=== PATIENT | female | born 1995 | race Caucasian/White ===

== ENCOUNTER → 2016-07-17 | Outpatient (CLI) | payer OTHER ==
[2016-07-17 11:24] LABS: Follicle Stimulating Hormone 3.7 mIU/mL; HCG,Quantitative Serum <2.4 mIU/mL; Prolactin 12.3 ng/mL (3.0-18.6)
[2016-07-17 11:39] LABS: Estradiol 52 pg/mL
== END ==
LOC: LABWHC1 10:23
PROVIDERS: ATTEND Obstetrics & Gynecology
DX: N91.2 Amenorrhea, unspecified (principal)
CPT/HCPCS: 36415; 82670; 83001; 84146; 84443; 84702

== ENCOUNTER → 2016-08-23 | Outpatient (CLI) | payer OTHER ==
--- NOTE | 2016-08-23 09:43 | XR ---
EXAMINATION TYPE: XR ankle complete RT DATE OF EXAM: 08/23/2016 CLINICAL HISTORY: Right lateral ankle pain for a few days. History of prior fracture. TECHNIQUE: Frontal, lateral and oblique images of the right ankle are obtained. COMPARISON: None. FINDINGS: There is no acute fracture/dislocation evident in the right ankle. The ankle mortise appe ars within normal limits. The overlying soft tissue appears unremarkable. IMPRESSION: There is no acute fracture or dislocation in the right ankle. Unremarkable study.
== END | disposition home or self-care (01) ==
LOC: RADXRMAIN 09:12
PROVIDERS: ATTEND Physician Assistant
DX: M25.571 Pain in right ankle and joints of right foot (principal)

== ENCOUNTER → 2016-08-30 | Outpatient (CLI) | payer OTHER ==
--- NOTE | 2016-08-30 15:16 | US ---
EXAMINATION TYPE: US pelvic complete DATE OF EXAM: 08/30/2016 COMPARISON: US 2013 CLINICAL HISTORY: E28.2 polycystic ovaries. LMP April 2016, TECHNIQUE: Transabdominal (TA) Date of LMP: April 2016 EXAM MEASUREMENTS: Uterus: 8.7 x 5.6 x 3.7 cm Endometrial Stripe: 1.1 cm Right Ovary: 3.3 x 2.4 x 2.1 cm Left Ovary: 4.4 x 3.5 x 2.3 cm 1. Uterus: Anteverted 2. Endometrium: unable to correlate thickness with April LMP 3. Right Ovary: multiple follicles with largest = 1.8 x 1.3 x 1.8cm 4. Left Ovary: multiple small follicles 5. Bilateral Adnexa: wnl 6. Posterior cul-de-sac: wnl IMPRESSION: 1. Multiple ovarian follicular cysts.
== END | disposition home or self-care (01) ==
LOC: RADUSWWP 14:04
PROVIDERS: ATTEND Family Medicine
DX: N83.02 Follicular cyst of left ovary (principal); N83.01 Follicular cyst of right ovary; E28.2 Polycystic ovarian syndrome
CPT/HCPCS: 76856

== ENCOUNTER 2016-09-06 17:51 | Emergency (ER) | payer OTHER ==
[2016-09-06 18:12] VITALS: RESP 16
[2016-09-06] MEDS ORDERED: SODIUM CHLORIDE 0.9% 1,000 ML IV ONE (18:42)
[2016-09-06] MEDS ORDERED: KETOROLAC 30 MG/ML 1 ML VIAL IVP STA (18:42)
--- NOTE | 2016-09-06 18:44 | ED ---
Abdominal Pain HPI - General Chief Complaint: Abdominal Pain Stated Complaint: POSS GALLBLADDER/APPENDICITIS Time Seen by Provider: 09/06/16 18:25 Source: patient, RN notes reviewed Mode of arrival: ambulatory Limitations: no limitations - History of Present Illness Initial Comments: Patient is a 20-year-old female since emergency room for evaluation of abdominal pain. Patient states starting 10:30 PM last night she began having right upper quadrant pain. Patient states that she made "shaken baked drumstick " with rice for dinner. Patient states that she was up to 5 in the morning with nausea and pain. Patient states she went to primary care provider today and she was tender in her right upper quadrant and in her right lower quadrant. Patient states she was told it could be her gallbladder or appendix and was advised to come to the emergency room for further evaluation. Patient denies any history of abdominal surgeries. Patient denies current nausea. Patient denies fevers or chills. Patient states she's having intermittent crampy/ spasming pain in her right upper quadrant. Patient states she only has pain in her right lower quadrant when someone presses over the area. Patient denies any pain or burning during urination, trouble urinating or blood in urine. Patient denies flank pain. Patient denies headache or dizziness. - Related Data Home Medications Medication Instructions Recorded Confirmed ALPRAZolam [Xanax] 0.5 mg PO DAILY PRN 09/06/16 09/06/16 Dextroamphetamine/Amphetamine 30 mg PO DAILY 09/06/16 09/06/16 [Adderall] Multivit-Min/Iron/Folic/Lutein 1 tab PO DAILY 09/06/16 09/06/16 [Centrum Silver Women Tablet] metFORMIN HCL [Glucophage] 500 mg PO BID 09/06/16 09/06/16 Previous Rx's Medication Instructions Recorded Famotidine [Pepcid] 20 mg PO DAILY PRN #12 tablet 09/06/16 Ondansetron Odt [Zofran Odt] 4 mg PO Q8HR PRN #12 tab 09/06/16 Allergies Allergy/AdvReac Type Severity Reaction Status Date / Time albuterol Allergy Rash/Hives Verified 09/06/16 18:30 azithromycin AdvReac Unknown Verified 09/06/16 18:30 Childhood divalproex sodium AdvReac Unknown Verified 09/06/16 18:30 [From Depakote] Latex, Natural Rubber AdvReac Itching Verified 09/06/16 18:30 sumatriptan [From Imitrex] AdvReac Diarrhea Verified 09/06/16 18:30 sumatriptan succinate AdvReac Diarrhea Verified 09/06/16 18:30 [From Imitrex] topiramate [From Topamax] AdvReac Unknown Verified 09/06/16 18:30 Review of Systems ROS Statement: Those systems with pertinent positive or pertinent negative responses have been documented in the HPI. ROS Other: All systems not noted in ROS Statement are negative. Past Medical History Past Medical History: Asthma Additional Past Medical History / Comment(s): Patient has a history of migraine headaches, PCOS History of Any Multi-Drug Resistant Organisms: None Reported Past Surgical History: Adenoidectomy, Ear Surgery, Tonsillectomy Additional Past Surgical History / Comment(s): Patient had tympanostomy tubes placed as a child. Past Anesthesia/Blood Transfusion Reactions: No Reported Reaction Past Psychological History: ADD/ADHD, Depression Smoking Status: Never smoker Past Alcohol Use History: None Reported Past Drug Use History: None Reported General Exam - General Exam Comments Initial Comments: Sitting in exam room, no acute distress. Limitations: no limitations General appearance: alert, in no apparent distress Head exam: Present: atraumatic, normocephalic, normal inspection Eye exam: Present: normal appearance ENT exam: Present: normal exam Neck exam: Present: normal inspection, full ROM Respiratory exam: Present: normal lung sounds bilaterally. Absent: respiratory distress Cardiovascular Exam: Present: regular rate, normal rhythm, normal heart sounds GI/Abdominal exam: Present: soft, tenderness (Right upper quadrant, mild right lower quadrant), normal bowel sounds. Absent: distended, guarding, rebound, rigid Extremities exam: Present: normal inspection Back exam: Present: normal inspection Neurological exam: Present: alert, oriented X3, CN II-XII intact, normal gait Psychiatric exam: Present: normal affect, normal mood Skin exam: Present: warm, dry, intact, normal color. Absent: rash Course Vital Signs 09/06/16 09/06/16 18:09 21:54 Temperature 97.8 F 98 F Pulse Rate 82 64 Respiratory 16 16 Rate Blood Pressure 128/83 118/68 O2 Sat by Pulse 100 98 Oximetry Medical Decision Making - Medical Decision Making Patient is a 21-year-old female presents to the emergency room for evaluation of abdominal pain. Ultrasound negative for cholelithiasis or cholecystitis. Appendix not visualized on ultrasound. CT abdomen/pelvis significant for possible gastritis and hepatic stetosis. Patient will be sent home with [place] and [facility] and advised how primary care provider. Patient states she understands everything that was discussed with her. Return parameters discussed. Case discussed Dr. Kovacs. - Lab Data Result diagrams: 09/06/16 18:55 09/06/16 18:55 Lab Results 09/06/16 09/06/16 09/06/16 Range/Units 18:55 18:55 18:55 WBC 7.3 (3.8-10.6) k/uL RBC 4.88 (3.80-5.40) m/uL Hgb 14.5 (11.4-16.0) gm/dL Hct 42.0 (34.0-46.0) % MCV 86.2 (80.0-100.0) fL MCH 29.7 (25.0-35.0) pg MCHC 34.5 (31.0-37.0) g/dL RDW 13.4 (11.5-15.5) % Plt Count 253 (150-450) k/uL Neutrophils % 63 % Lymphocytes % 28 % Monocytes % 5 % Eosinophils % 2 % Basophils % 1 % Neutrophils # 4.6 (1.3-7.7) k/uL Lymphocytes # 2.1 (1.0-4.8) k/uL Monocytes # 0.4 (0-1.0) k/uL Eosinophils # 0.2 (0-0.7) k/uL Basophils # 0.0 (0-0.2) k/uL Sodium 144 (137-145) mmol/L Potassium 4.2 (3.5-5.1) mmol/L Chloride 106 (98-107) mmol/L Carbon Dioxide 26 (22-30) mmol/L Anion Gap 12 mmol/L BUN 14 (7-17) mg/dL Creatinine 0.80 (0.52-1.04) mg/dL Est GFR (MDRD) Af Amer >60 (>60 ml/min/1.73 sqM) Est GFR (MDRD) Non-Af >60 (>60 ml/min/1.73 sqM) Glucose 73 L (74-99) mg/dL Calcium 9.9 (8.4-10.2) mg/dL Total Bilirubin 0.2 (0.2-1.3) mg/dL AST 27 (14-36) U/L ALT 44 (9-52) U/L Alkaline Phosphatase 65 (38-126) U/L Total Protein 7.4 (6.3-8.2) g/dL Albumin 4.7 (3.5-5.0) g/dL Amylase 36 (30-110) U/L Lipase 95 (23-300) U/L Urine Color Urine Appearance (Clear) Urine pH (5.0-8.0) Ur Specific [place] (1.001-1.035) Urine Protein (Negative) Urine Glucose (UA) (Negative) Urine Ketones (Negative) Urine Blood (Negative) Urine Nitrite (Negative) Urine Bilirubin (Negative) Urine Urobilinogen (<2.0) mg/dL Ur Leukocyte Esterase (Negative) Urine RBC (0-5) /hpf Urine WBC (0-5) /hpf Ur Squamous Epith Cells (0-4) /hpf Urine Mucus (None) /hpf Urine HCG, Qual Not Detected (Not Detectd) 09/06/16 Range/Units 18:55 WBC (3.8-10.6) k/uL RBC (3.80-5.40) m/uL Hgb (11.4-16.0) gm/dL Hct (34.0-46.0) % MCV (80.0-100.0) fL MCH (25.0-35.0) pg MCHC (31.0-37.0) g/dL RDW (11.5-15.5) % Plt Count (150-450) k/uL Neutrophils % % Lymphocytes % % Monocytes % % Eosinophils % % Basophils % % Neutrophils # (1.3-7.7) k/uL Lymphocytes # (1.0-4.8) k/uL Monocytes # (0-1.0) k/uL Eosinophils # (0-0.7) k/uL Basophils # (0-0.2) k/uL Sodium (137-145) mmol/L Potassium (3.5-5.1) mmol/L Chloride (98-107) mmol/L Carbon Dioxide (22-30) mmol/L Anion Gap mmol/L BUN (7-17) mg/dL Creatinine (0.52-1.04) mg/dL Est GFR (MDRD) Af Amer (>60 ml/min/1.73 sqM) Est GFR (MDRD) Non-Af (>60 ml/min/1.73 sqM) Glucose (74-99) mg/dL Calcium (8.4-10.2) mg/dL Total Bilirubin (0.2-1.3) mg/dL AST (14-36) U/L ALT (9-52) U/L Alkaline Phosphatase (38-126) U/L Total Protein (6.3-8.2) g/dL Albumin (3.5-5.0) g/dL Amylase (30-110) U/L Lipase (23-300) U/L Urine Color Yellow Urine Appearance Cloudy H (Clear) Urine pH 5.0 (5.0-8.0) Ur Specific [place] 1.019 (1.001-1.035) Urine Protein Negative (Negative) Urine Glucose (UA) Negative (Negative) Urine Ketones Negative (Negative) Urine Blood Negative (Negative) Urine Nitrite Negative (Negative) Urine Bilirubin Negative (Negative) Urine Urobilinogen <2.0 (<2.0) mg/dL Ur Leukocyte Esterase Small H (Negative) Urine RBC 13 H (0-5) /hpf Urine WBC 2 (0-5) /hpf Ur Squamous Epith Cells 1 (0-4) /hpf Urine Mucus Rare H (None) /hpf Urine HCG, Qual (Not Detectd) - Radiology Data Radiology results: report reviewed, image reviewed Disposition Clinical Impression: Abdominal pain Disposition: HOME SELF-CARE Condition: Good Instructions: Gastritis (ED), Abdominal Pain (ED) Additional Instructions: Take medications as needed. Please up with primary care provider for reevaluation in 24-48 hours. If any new symptom arises or symptoms worsen, return to ER as soon as possible. Prescriptions: Ondansetron Odt [Zofran Odt] 4 mg PO Q8HR PRN #12 tab PRN Reason: Nausea Famotidine [Pepcid] 20 mg PO DAILY PRN #12 tablet PRN Reason: Pain Referrals: Tex Mendoza MD [Primary Care Provider] - 1-2 days Time of Disposition: 21:45
[2016-09-06 19:09] LABS: Basophils % (A) 1 %; CH 30.6; CHCM 35.7; Eosinophils # (A) 0.2 k/uL (0-0.7); Eosinophils % (A) 2 %; HDW 2.84; HGB 14.5 gm/dL (11.4-16.0); Luc % (Auto) 1; Lymphocytes # (A) 2.1 k/uL (1.0-4.8); Lymphocytes % (A) 28 %; MCH 29.7 pg (25.0-35.0); MCHC 34.5 g/dL (31.0-37.0); MCV 86.2 fL (80.0-100.0); Mean Platelet Volume 7.8; Monocytes # (A) 0.4 k/uL (0-1.0); Monocytes % (A) 5 %; Neutrophils # (A) 4.6 k/uL (1.3-7.7); Neutrophils % (A) 63 %; RBC 4.88 m/uL (3.80-5.40); RDW 13.4 % (11.5-15.5); WBC 7.3 k/uL (3.8-10.6); WBC (Perox) 7.17
[2016-09-06 19:17] LABS: Appearance,Urine Cloudy (Clear); Bilirubin,Urine Negative (Negative); Glucose,Urine (UA) Negative (Negative); Ketones,Urine Negative (Negative); Leukocyte Esterase,Urine Small (Negative); Mucus,Urine Rare /hpf; Nitrite,Urine Negative (Negative); Particle Count 2672; Protein,Urine Negative (Negative); RBC,Urine 13 /hpf (0-5); Specific Gravity,Urine 1.019 (1.001-1.035); Squamous Epithelial Cell,Urine 1 /hpf (0-4); UA Billing (MACRO vs. MICRO) MICRO; Urobilinogen,Urine <2.0 mg/dL (<2.0); WBC,Urine 2 /hpf (0-5)
[2016-09-06 19:21] LABS: ALT 44 U/L (9-52); AST 27 U/L (14-36); Alkaline Phosphatase 65 U/L (38-126); Amylase 36 U/L (30-110); Anion Gap 12 mmol/L; Blood Urea Nitrogen 14 mg/dL (7-17); Calcium 9.9 mg/dL (8.4-10.2); Carbon Dioxide 26 mmol/L (22-30); Chloride 106 mmol/L (98-107); Glucose 73 mg/dL (74-99); Non-African American GFR(MDRD) >60 (>60 ml/min/1.73 sqM); Potassium 4.2 mmol/L (3.5-5.1); Sodium 144 mmol/L (137-145); Total Bilirubin 0.2 mg/dL (0.2-1.3); Total Protein 7.4 g/dL (6.3-8.2)
--- NOTE | 2016-09-06 20:07 | US ---
EXAMINATION TYPE: US abdomen APPY DATE OF EXAM: 09/06/2016 COMPARISON: NONE CLINICAL HISTORY: Pain. APPENDIX AP Diameter (normal < 6mm): 5 mm Measured outer wall to outer wall. Is the appendix seen in its entirety from the proximal cecum to distal end: No, the appendix is not visualized in its entirety. Tube like structure visualized in the RLQ measuring 0.5 cm, possible appe ndix Is the appendix compressible: Yes Does the appendix wall appear hypervascular: No Is an appendicolith present: No Is there inflammatory changes or free fluid present: No IMPRESSION: The appendix is not definitively visualized.
--- NOTE | 2016-09-06 20:32 | US ---
EXAMINATION TYPE: US abdomen limited DATE OF EXAM: 09/06/2016 COMPARISON: NONE CLINICAL HISTORY: RUQ Pain. EXAM MEASUREMENTS: Liver Length: 21.6 cm Gallbladder Wall: 0.2 cm CBD: 0.4 cm Right Kidney: 11.2 x 3.5 x 4.8 cm Pancreas: Obscured by bowel gas, visualized portions wnl Liver: Enlarged. Coarse, hyperechoic echotexture. Gallbladder: wnl Evidence for sonographic Solorzano's sign: Yes CBD: wnl Right Kidney: No hydronephrosis or masses seen, cortical medullary differentiation is maintained. There is no ascites. IMPRESSION: Probable hepatic steatosis.
[2016-09-06] MEDS ORDERED: RX INFO: IV CONTRAST WAS GIVEN 1 EACH MISC MISCELLANE PRN (20:42)
--- NOTE | 2016-09-06 21:25 | CT ---
EXAMINATION TYPE: CT abdomen pelvis w con DATE OF EXAM: 09/06/2016 COMPARISON: Ultrasound abdomen same date an ultrasound pelvis of 08/30/2016 HISTORY: Right side abdominal pain. CT DLP: 1638.9 mGycm Automated exposure control for dose reduction was used. TECHNIQUE: Helical acquisition of images from the lung bases through the pelvis have been completed. CONTRAST: Performed without Oral Contrast and with IV Contrast, patient injected with 100 mL of Omnipaque 300. FINDINGS: Stomach shows a thickened wall which could be due to lack of distention. LUNG BASES: No significant abnormality is appreciated. AORTA: No significant abnormality is appreciated. LIVER/GB: Liver shows low attenuation compatible with fatty infiltration, the liver is enlarged, gall bladder is normal. PANCREAS: No significant abnormality is seen. SPLEEN: No significant abnormality is seen. ADRENALS: No significant abnormality is seen. KIDNEYS: No significant abnormality is seen. REPRODUCTIVE ORGANS: No significant abnormality is seen BOWEL: No significant abnormality is seen. Appendix is normal FREE AIR: No Free Air visible. ASCITES: None visible. PELVIC ADENOPATHY: None visualized. RETROPERITONEAL ADENOPATHY: No Retroperitoneal Adenopathy visible. URINARY BLADDER: No significant abnormality is seen. OSSEOUS STRUCTURES: No significant abnormality is seen. IMPRESSION: HEPATOMEGALY, HEPATIC STEATOSIS. CORRELATE FOR GASTRITIS.
[2016-09-06 21:56] VITALS: BP 118/68; PULSE 64; TEMP 98
== END 2016-09-06 21:54 | disposition home or self-care (01) ==
LOC: EC 17:51
DX: R10.11 Right upper quadrant pain (principal); R10.31 Right lower quadrant pain; R11.0 Nausea; K76.0 Fatty (change of) liver, not elsewhere classified; F90.9 Attention-deficit hyperactivity disorder, unspecified type; Z79.84 Long term (current) use of oral hypoglycemic drugs; Z79.899 Other long term (current) drug therapy; Z88.1 Allergy status to other antibiotic agents; Z88.8 Allergy status to other drugs, medicaments and biological substances; Z91.040 Latex allergy status
CPT/HCPCS: 36415; 80053; 82150; 83690; 85025; 81001; 81025; 76705; 74177; 99284; 96374; 96361 ×3; J1885; Q9967

== ENCOUNTER → 2016-09-28 | Outpatient (CLI) | payer OTHER ==
--- NOTE | 2016-09-28 09:39 | NM ---
EXAMINATION TYPE: NM hepatobiliary w EF DATE OF EXAM: 09/28/2016 COMPARISON: Abdominal ultrasound and CT dated 09/06/2016 HISTORY: Right upper quadrant pain TECHNIQUE: After the intravenous administration of 5.1 mCi Tc 99m Mebrofenin hepatobiliary scintigrap hy is performed. Immediate images post injection. FINDINGS: There is satisfactory initial accumulation of tracer by the liver. The gallbladder is visualized wit hin 6 minutes. The small bowel activity is noted within 10 minutes. At one hour 8 ounces of oral en sure plus is given to mimic CCK and gallbladder ejection fraction is calculated at 89 %, in the chanda l range. Therefore there is no scintigraphic evidence of cystic or common bile duct obstruction to s uggest acute cholecystitis or gallbladder dyskinesia. IMPRESSION: 1. No evidence of acute or chronic cholecystitis. 2. No evidence of biliary dyskinesia with ejection fraction of 89%.
== END ==
LOC: RADNMMAIN 07:00
PROVIDERS: ATTEND Family Medicine
DX: R10.11 Right upper quadrant pain (principal)
CPT/HCPCS: 78226; A9537

== ENCOUNTER → 2016-11-13 | Outpatient (CLI) | payer OTHER ==
--- NOTE | 2016-11-13 18:02 | CT ---
EXAMINATION TYPE: CT brain wo con DATE OF EXAM: 11/13/2016 COMPARISON: CT brain January 09, 2013 HISTORY: migraines headaches per order, change in vision, loss of balance, dizziness CT DLP: 1067 mGycm. Automated Exposure Control for Dose Reduction was Utilized. TECHNIQUE: CT scan of the head is performed without contrast. FINDINGS: There is no acute intracranial hemorrhage, mass effect, or midline shift identified. The ventricles and sulci are within normal limits in size. Guerrero-white matter differentiation is fairly well-maintained. The globes are intact and the visualized sinuses are clear. IMPRESSION: No acute intracranial hemorrhage, mass effect, or midline shift is seen. Unremarkable st udy. No significant change from prior.
== END | disposition home or self-care (01) ==
LOC: RADCTMAIN 17:35
PROVIDERS: ATTEND Family Medicine
DX: R51 Headache (principal)
CPT/HCPCS: 70450

== ENCOUNTER → 2016-12-28 | Outpatient (CLI) | payer OTHER ==
--- NOTE | 2016-12-29 09:05 | ECHOF ---
Referral Reason:R03.0 Elevated DT without HTN MEASUREMENTS -------- HEIGHT: 170.2 cm WEIGHT: 110.7 kg BP: 133/74 IVSd: 0.9 cm (0.6 - 1.1) LVIDd: 3.1 cm (3.9 - 5.3) LVPWd: 1.0 cm (0.6 - 1.1) IVSs: 1.4 cm LVIDs: 1.6 cm LVPWs: 1.7 cm LAESV Index (A-L): 19.60 ml/m Ao Diam: 2.8 cm (2.0 - 3.7) AV Cusp: 1.9 cm (1.5 - 2.6) LA Diam: 2.7 cm (2.7 - 3.8) MV EXCURSION: 11.540 mm (> 18.000) MV EF SLOPE: 80 mm/s (70 - 150) EPSS: 0.7 cm MV E Theron: 0.85 m/s MV DecT: 151 ms MV A Theron: 0.68 m/s MV E/A Ratio: 1.25 AR PHT: 614 ms RAP: 5.00 mmHg RVSP: 17.18 mmHg FINDINGS -------- Sinus rhythm. This was a technically good study. The left ventricular size is normal. Left ventricular wall thickness is normal. Overall left vent ricular systolic function is normal with, an EF between 55 - 60 %. The right ventricle is normal in size and function. The left atrium is normal in size. The right atrium is normal in size. The aortic valve is trileaflet, and appears structurally normal. No aortic stenosis or regurgitation. Trace amount of aortic regurgitation. The mitral valve leaflets are mildly thickened. There is trace mitral regurgitation. Trace tricuspid regurgitation present. The right ventricular systolic pressure, as measured by Dopp ler, is 17.18mmHg. Pulmonic valve appears structurally normal. The aortic root size is normal. The pericardium is normal. CONCLUSIONS -------- 1. Sinus rhythm. 2. This was a technically good study. 3. The left ventricular size is normal. 4. Left ventricular wall thickness is normal. 5. Overall left ventricular systolic function is normal with, an EF between 55 - 60 %. 6. The right ventricle is normal in size and function. 7. The left atrium is normal in size. 8. The right atrium is normal in size. 9. The aortic valve is trileaflet, and appears structurally normal. No aortic stenosis or regurgitati on. 10. Trace amount of aortic regurgitation. 11. The mitral valve leaflets are mildly thickened. 12. There is trace mitral regurgitation. 13. Trace tricuspid regurgitation present. 14. The right ventricular systolic pressure, as measured by Doppler, is 17.18mmHg. 15. Pulmonic valve appears structurally normal. 16. The aortic root size is normal. 17. The pericardium is normal. LIFE SCIENCES DIRECTOR: Cheyanne Rowe RDCS
== END ==
LOC: RADECHMAIN 13:20
PROVIDERS: ATTEND Family Medicine
DX: I08.3 Combined rheumatic disorders of mitral, aortic and tricuspid valves (principal); Z91.09 Other allergy status, other than to drugs and biological substances
CPT/HCPCS: 93306

== ENCOUNTER → 2017-05-07 | Outpatient (CLI) | payer OTHER ==
--- NOTE | 2017-05-07 11:49 | ECHOS ---
STRESS ECHOCARDIOGRAM INDICATIONS: Chest pain. MEDICATIONS: Xanax. BASELINE HEART RATE: 98 BASELINE BLOOD PRESSURE: 130/64 MAXIMUM HEART RATE: 176 MAXIMUM BLOOD PRESSURE: 167/66 85% MPHR: 167 100% MPHR: 197 METS: 10.7 MAXIMUM STAGE REACHED: 4 TOTAL EXERCISE TIME: 9:15 CLINICAL INFORMATION: Baseline EKG revealed normal sinus rhythm without significant ST-T changes. Patient walked on a standard Андрей protocol for 9 minutes 15 seconds and achieved a maximal heart rate of 176 beats per minute. Resting heart rate was 98 beats per minute. Resting blood pressure was 130/64 and went up to 167/66. Patient did not have any angina or arrhythmia. EKG did not reveal any ST-segment changes to indicate ischemia. By EKG criteria, this is a negative stress test with fair exercise capacity. Baseline echo images revealed normal wall motion and wall thickening of all segments. At peak exercise, there was good augmentation of left ventricular wall motion and wall thickening of all segments suggesting that there is no evidence of stress-induced ischemia on this study. IMPRESSION: 1. Fair exercise capacity with a negative stress test by EKG criteria. 2. Normal stress echocardiogram. MMODL / IJN: [id number] /
== END | disposition home or self-care (01) ==
LOC: RADNMMAIN 09:07
PROVIDERS: ATTEND Family Medicine
DX: R07.9 Chest pain, unspecified (principal)
CPT/HCPCS: 93017; 93350

== ENCOUNTER → 2017-05-21 | Outpatient (CLI) | payer OTHER ==
--- NOTE | 2017-05-21 15:01 | XR ---
EXAMINATION TYPE: XR chest 2V DATE OF EXAM: 05/21/2017 COMPARISON: NONE HISTORY: Chest pain TECHNIQUE: Frontal and lateral views of the chest are obtained. FINDINGS: There is no focal air space opacity. No evidence for pneumothorax. No pleural effusion. The cardiac silhouette size is within normal limits. The osseous structures are grossly intact. IMPRESSION: 1. No acute cardiopulmonary process.
== END | disposition home or self-care (01) ==
LOC: RADXRMAIN 14:20
PROVIDERS: ATTEND Family Medicine
DX: R07.9 Chest pain, unspecified (principal)
CPT/HCPCS: 71046

== ENCOUNTER 2017-06-25 01:50 | Emergency (ER) | payer OTHER ==
[2017-06-25] MEDS ORDERED: SODIUM CHLORIDE 0.9% 1,000 ML IV STA (02:10)
[2017-06-25 02:29] LABS: Basophils % (A) 1 %; Eosinophils # (A) 0.2 k/uL (0-0.7); Eosinophils % (A) 3 %; HCT 41.3 % (34.0-46.0); HGB 14.5 gm/dL (11.4-16.0); Lymphocytes # (A) 2.4 k/uL (1.0-4.8); Lymphocytes % (A) 31 %; MCH 29.7 pg (25.0-35.0); MCV 84.8 fL (80.0-100.0); Mean Platelet Volume 7.2; Monocytes # (A) 0.3 k/uL (0-1.0); Monocytes % (A) 4 %; Neutrophils # (A) 4.7 k/uL (1.3-7.7); Neutrophils % (A) 61 %; Platelet Count 267 k/uL (150-450); RBC 4.87 m/uL (3.80-5.40); RDW 13.1 % (11.5-15.5); WBC 7.7 k/uL (3.8-10.6)
[2017-06-25 02:32] LABS: Appearance,Urine Cloudy (Clear); Bilirubin,Urine Negative (Negative); Blood,Urine Negative (Negative); Color,Urine Yellow; Glucose,Urine (UA) Negative (Negative); Ketones,Urine Trace (Negative); Leukocyte Esterase,Urine Negative (Negative); Mucus,Urine Few /hpf; Nitrite,Urine Negative (Negative); PH, Urine 5.5 (5.0-8.0); Protein,Urine Trace (Negative); RBC,Urine 1 /hpf (0-5); Squamous Epithelial Cell,Urine 6 /hpf (0-4); WBC,Urine 1 /hpf (0-5)
[2017-06-25 02:37] LABS: INR 1.1 (<1.2)
[2017-06-25 02:38] LABS: ALT 42 U/L (9-52); AST 26 U/L (14-36); Albumin 4.8 g/dL (3.5-5.0); Alkaline Phosphatase 62 U/L (38-126); Amylase 49 U/L (30-110); Anion Gap 12 mmol/L; Blood Urea Nitrogen 18 mg/dL (7-17); Calcium 10.5 mg/dL (8.4-10.2); Carbon Dioxide 26 mmol/L (22-30); Chloride 105 mmol/L (98-107); Glucose 107 mg/dL (74-99); Lipase 106 U/L (23-300); Potassium 4.6 mmol/L (3.5-5.1); Prothrombin Time 10.3 sec (9.0-12.0); Sodium 143 mmol/L (137-145); Total Bilirubin 0.3 mg/dL (0.2-1.3); Total Protein 7.4 g/dL (6.3-8.2)
--- NOTE | 2017-06-25 02:58 | XR ---
EXAMINATION TYPE: XR KUB DATE OF EXAM: 06/25/2017 COMPARISON: NONE HISTORY: Abdominal pain TECHNIQUE: 2 views upright FINDINGS: There is no sign of intestinal obstruction or pneumoperitoneum. Fecal pattern is normal. Marcia ng bases are clear. There are no pathologic calcifications. IMPRESSION: Nonacute abdomen.
--- NOTE | 2017-06-25 03:03 | ED ---
Abdominal Pain HPI - General Chief Complaint: Abdominal Pain Stated Complaint: blood in stool,abd pain Time Seen by Provider: 06/25/17 02:00 Source: patient, RN notes reviewed Mode of arrival: ambulatory Limitations: no limitations - History of Present Illness Initial Comments: This is a 22-year-old female presents emergency Department chief complaint of abdominal discomfort, diarrhea. She states that she's had diarrhea the last 13 days has recently worsened. She states that she's felt much that she feels that she has nothing left. She states she has known hemorrhoids and has had some increased bleeding. She states that she has some lower abdominal cramping denies any vomiting, fever, chills. She's been on no recent antibiotics no recent traveling. She states that she did have some contacts with similar symptoms. Patient denies any chance . Denies any current vaginal bleeding or vaginal discharge patient denies any back pain, headache or dizziness. - Related Data Home Medications Medication Instructions Recorded Confirmed ALPRAZolam [Xanax] 0.5 mg PO DAILY PRN 09/06/16 06/25/17 Omeprazole [PriLOSEC] 20 mg PO AC-[id number] 06/25/17 06/25/17 Sertraline [Zoloft] 50 mg PO DAILY 06/25/17 06/25/17 Previous Rx's Medication Instructions Recorded Ciprofloxacin HCl [Cipro] 500 mg PO Q12HR #14 tablet 06/25/17 Pramoxine HCl [Proctofoam] 1 applic RECTAL BID #1 bottle 06/25/17 Allergies Allergy/AdvReac Type Severity Reaction Status Date / Time albuterol Allergy Rash/Hives Verified 06/25/17 01:56 azithromycin AdvReac Unknown Verified 06/25/17 01:56 Childhood divalproex sodium AdvReac Unknown Verified 06/25/17 01:56 [From Depakote] Latex, Natural Rubber AdvReac Itching Verified 06/25/17 01:56 sumatriptan [From Imitrex] AdvReac Diarrhea Verified 06/25/17 01:56 sumatriptan succinate AdvReac Diarrhea Verified 06/25/17 01:56 [From Imitrex] topiramate [From Topamax] AdvReac Unknown Verified 06/25/17 01:56 Review of Systems ROS Statement: Those systems with pertinent positive or pertinent negative responses have been documented in the HPI. ROS Other: All systems not noted in ROS Statement are negative. Past Medical History Past Medical History: Asthma Additional Past Medical History / Comment(s): Patient has a history of migraine headaches, PCOS History of Any Multi-Drug Resistant Organisms: None Reported Past Surgical History: Adenoidectomy, Ear Surgery, Tonsillectomy Additional Past Surgical History / Comment(s): Patient had tympanostomy tubes placed as a child. Past Anesthesia/Blood Transfusion Reactions: No Reported Reaction Past Psychological History: ADD/ADHD, Anxiety, Depression Smoking Status: Never smoker Past Alcohol Use History: None Reported Past Drug Use History: None Reported General Exam Limitations: no limitations General appearance: alert, in no apparent distress Respiratory exam: Present: normal lung sounds bilaterally. Absent: respiratory distress, wheezes, rales, rhonchi, stridor Cardiovascular Exam: Present: regular rate, normal rhythm, normal heart sounds. Absent: systolic murmur, diastolic murmur, rubs, gallop, clicks GI/Abdominal exam: Present: soft, tenderness (Minimal lower abdominal tenderness ), normal bowel sounds. Absent: distended, guarding, rebound, rigid Back exam: Absent: CVA tenderness (R), CVA tenderness (L) Skin exam: Present: warm, dry, intact, normal color. Absent: rash Course Vital Signs 06/25/17 01:52 Temperature 99.1 F Pulse Rate 106 H Respiratory 20 Rate Blood Pressure 140/91 O2 Sat by Pulse 97 Oximetry Medical Decision Making - Medical Decision Making 22-year-old female presented unresponsive to complaint of diarrhea 15 days. Patient's progressive worsening diarrhea. Unable to provide sample here. Patient's lab work is unremarkable. Patient's abdominal exam is essentially benign other minimal lower abdominal tenderness. Patient most likely has colitis or rectal irritation secondary to diarrhea. Patient has known hemorrhoids. Patient will be discharged with Michela Chawla for colitis and she will follow-up with PCP. - Lab Data Result diagrams: 06/25/17 02:19 06/25/17 02:19 Lab Results 06/25/17 06/25/17 06/25/17 Range/Units 02:19 02:19 02:19 WBC 7.7 (3.8-10.6) k/uL RBC 4.87 (3.80-5.40) m/uL Hgb 14.5 (11.4-16.0) gm/dL Hct 41.3 (34.0-46.0) % MCV 84.8 (80.0-100.0) fL MCH 29.7 (25.0-35.0) pg MCHC 35.0 (31.0-37.0) g/dL RDW 13.1 (11.5-15.5) % Plt Count 267 (150-450) k/uL Neutrophils % 61 % Lymphocytes % 31 % Monocytes % 4 % Eosinophils % 3 % Basophils % 1 % Neutrophils # 4.7 (1.3-7.7) k/uL Lymphocytes # 2.4 (1.0-4.8) k/uL Monocytes # 0.3 (0-1.0) k/uL Eosinophils # 0.2 (0-0.7) k/uL Basophils # 0.0 (0-0.2) k/uL PT (9.0-12.0) sec INR (<1.2) APTT (22.0-30.0) sec Sodium 143 (137-145) mmol/L Potassium 4.6 (3.5-5.1) mmol/L Chloride 105 (98-107) mmol/L Carbon Dioxide 26 (22-30) mmol/L Anion Gap 12 mmol/L BUN 18 H (7-17) mg/dL Creatinine 0.90 (0.52-1.04) mg/dL Est GFR (CKD-EPI)AfAm >90 (>60 ml/min/1.73 sqM) Est GFR (CKD-EPI)NonAf >90 (>60 ml/min/1.73 sqM) Glucose 107 H (74-99) mg/dL Plasma Lactic Acid Balaji (0.7-2.0) mmol/L Calcium 10.5 H (8.4-10.2) mg/dL Total Bilirubin 0.3 (0.2-1.3) mg/dL AST 26 (14-36) U/L ALT 42 (9-52) U/L Alkaline Phosphatase 62 (38-126) U/L Total Protein 7.4 (6.3-8.2) g/dL Albumin 4.8 (3.5-5.0) g/dL Amylase 49 (30-110) U/L Lipase 106 (23-300) U/L Urine Color Urine Appearance (Clear) Urine pH (5.0-8.0) Ur Specific Bennett (1.001-1.035) Urine Protein (Negative) Urine Glucose (UA) (Negative) Urine Ketones (Negative) Urine Blood (Negative) Urine Nitrite (Negative) Urine Bilirubin (Negative) Urine Urobilinogen (<2.0) mg/dL Ur Leukocyte Esterase (Negative) Urine RBC (0-5) /hpf Urine WBC (0-5) /hpf Ur Squamous Epith Cells (0-4) /hpf Urine Mucus (None) /hpf Urine HCG, Qual Not Detected (Not Detectd) 06/25/17 06/25/17 06/25/17 Range/Units 02:19 02:19 02:19 WBC (3.8-10.6) k/uL RBC (3.80-5.40) m/uL Hgb (11.4-16.0) gm/dL Hct (34.0-46.0) % MCV (80.0-100.0) fL MCH (25.0-35.0) pg MCHC (31.0-37.0) g/dL RDW (11.5-15.5) % Plt Count (150-450) k/uL Neutrophils % % Lymphocytes % % Monocytes % % Eosinophils % % Basophils % % Neutrophils # (1.3-7.7) k/uL Lymphocytes # (1.0-4.8) k/uL Monocytes # (0-1.0) k/uL Eosinophils # (0-0.7) k/uL Basophils # (0-0.2) k/uL PT 10.3 (9.0-12.0) sec INR 1.1 (<1.2) APTT 23.0 (22.0-30.0) sec Sodium (137-145) mmol/L Potassium (3.5-5.1) mmol/L Chloride (98-107) mmol/L Carbon Dioxide (22-30) mmol/L Anion Gap mmol/L BUN (7-17) mg/dL Creatinine (0.52-1.04) mg/dL Est GFR (CKD-EPI)AfAm (>60 ml/min/1.73 sqM) Est GFR (CKD-EPI)NonAf (>60 ml/min/1.73 sqM) Glucose (74-99) mg/dL Plasma Lactic Acid Balaji 0.9 (0.7-2.0) mmol/L Calcium (8.4-10.2) mg/dL Total Bilirubin (0.2-1.3) mg/dL AST (14-36) U/L ALT (9-52) U/L Alkaline Phosphatase (38-126) U/L Total Protein (6.3-8.2) g/dL Albumin (3.5-5.0) g/dL Amylase (30-110) U/L Lipase (23-300) U/L Urine Color Yellow Urine Appearance Cloudy H (Clear) Urine pH 5.5 (5.0-8.0) Ur Specific Bennett 1.030 (1.001-1.035) Urine Protein Trace H (Negative) Urine Glucose (UA) Negative (Negative) Urine Ketones Trace H (Negative) Urine Blood Negative (Negative) Urine Nitrite Negative (Negative) Urine Bilirubin Negative (Negative) Urine Urobilinogen 2.0 (<2.0) mg/dL Ur Leukocyte Esterase Negative (Negative) Urine RBC 1 (0-5) /hpf Urine WBC 1 (0-5) /hpf Ur Squamous Epith Cells 6 H (0-4) /hpf Urine Mucus Few H (None) /hpf Urine HCG, Qual (Not Detectd) Disposition Clinical Impression: Diarrhea, Rectal bleeding, Colitis Disposition: HOME SELF-CARE Condition: Stable Instructions: Acute Diarrhea (ED) Additional Instructions: Please return to the Emergency Department if symptoms worsen or any other concerns. Prescriptions: Ciprofloxacin HCl [Cipro] 500 mg PO Q12HR #14 tablet Pramoxine HCl [Proctofoam] 1 applic RECTAL BID #1 bottle Is patient prescribed a controlled substance at d/c from ED?: No Referrals: Tex Mendoza MD [Primary Care Provider] - 1-2 days Time of Disposition: 03:24
[2017-06-25] MEDS ORDERED: DIPHENOX-ATROP STARTER PACK 8 TAB BTL PO STA (03:24)
[2017-06-25 03:35] VITALS: BP 128/70; PULSE 80; RESP 18; TEMP 98.6
== END 2017-06-25 03:35 | disposition home or self-care (01) ==
LOC: EC 01:50
DX: K52.9 Noninfective gastroenteritis and colitis, unspecified (principal); F41.9 Anxiety disorder, unspecified; F32.9 Major depressive disorder, single episode, unspecified; K64.9 Unspecified hemorrhoids; Z87.42 Personal history of other diseases of the female genital tract; Z79.899 Other long term (current) drug therapy; Z88.1 Allergy status to other antibiotic agents; Z88.8 Allergy status to other drugs, medicaments and biological substances; Z91.040 Latex allergy status
CPT/HCPCS: 36415; 74018; 80053; 81001; 81025; 82150; 83605; 83690; 85025; 85610; 85730; 96360; 99284

== ENCOUNTER 2017-07-18 11:59 | Day surgery (SDC) | payer OTHER ==
[2017-07-15 16:00] VITALS: BMI 39.4
[~2017-07-18 11:59] MED LIST: LACTATED RINGERS 1,000 ML IV SCH; LIDOCAINE 1% 20 ML VIAL (10MG/ML) FOR IV START INTRADERMA PRN; MIDAZOLAM 2 MG/2 ML VIAL IV PRN
[2017-07-18 12:37] VITALS: RESP 18; TEMP 97.9
[2017-07-18] MEDS ORDERED: LIDOCAINE 1% INJ 10MG/ML (20 ML MDV) ONE (13:03)
[2017-07-18] MEDS ORDERED: PROPOFOL 10 MG/ML 20 ML VIAL IV ONE (13:03)
[2017-07-18] MEDS ORDERED: fentaNYL (PF) 50 MCG/ML 2 ML AMP ONE (13:03)
[2017-07-18] MEDS ORDERED: MIDAZOLAM 2 MG/2 ML VIAL ONE (13:03)
--- NOTE | 2017-07-18 13:42 | P.PCN ---
Date of Procedure: 07/18/17 Procedure(s) Performed: Procedures: 1. Esophagogastroduodenoscopy and biopsy. 2. Colonoscopy and biopsy. Preoperative diagnosis: Abdominal pain, change in bowel habits and nausea and vomiting. Postoperative diagnosis: 1. Mild antral gastritis. 2. Normal colon and terminal ileum. 3. Multiple biopsies obtained from the duodenum, antrum, esophagus, terminal ileum and random colon. Preparation: HalfLytely prep. Sedation: Was provided by anesthesia. Brief clinical history: The patient is a 22-year-old female was recently evaluated in the office for abdominal pains and diarrhea as well as nausea and vomiting and regurgitation. This has been going on for several weeks. No bleeding or extraintestinal manifestations of inflammatory bowel disease. Her maternal grandmother had colitis. The patient was previously treated with Cipro for possible infectious colitis but remains symptomatic. This evaluation is to assess for inflammatory bowel disease, celiac disease,, complicated reflux disease or other pathology. Procedure: With the patient on her left lateral decubitus position and after informed consent and adequate sedation, I passed the Olympus-GIF 160 video upper endoscope through the cricopharyngeus down the esophagus. GE junction was around 40-41 cm from the incisors with no evidence of hiatal hernia, esophagitis or complicated reflux disease. The endoscope was then advanced into the stomach which was insufflated with air and inspected in detail including the retroflex view in the cardia. There was minimal mottling and erythema in the antrum but no ulcers or erosions. Pyloric channel, duodenal bulb, post bulbar area and descending duodenum appeared within normal limits. I obtained biopsies from the duodenum, antrum and esophagus then the endoscope was withdrawn and I proceeded with the colonoscopy. Perianal area did not show any fissures or fistulas. There were no masses felt on digital rectal examination. The Olympus CFQ 160L video colonoscope was then inserted in the rectum in the usual fashion and advanced to the cecum. I intubated the ileocecal valve and examined the terminal ileum. Terminal ileum and colon appeared healthy with no edema, erythema, friability, ulceration, exudation or spontaneous bleeding. No polyps or tumors were seen. No obvious diverticular disease or other pathology. I obtained biopsies from the terminal ileum and randomly from the colon before the endoscope was withdrawn. The patient tolerated the procedure well. Plan: The patient was reassured and I discussed with her mother. Will await biopsy results and make further plans based on her course and biopsy results. She will follow-up with you as planned.
[2017-07-18 14:05] VITALS: BP 108/67; PULSE 80
[2017-07-18] MEDS ORDERED: ONDANSETRON 4 MG/2 ML VIAL IVP ONE (14:10)
== END 2017-07-18 14:39 | disposition home or self-care (01) ==
LOC: ORWHC2ENDO 11:59
DX: K29.50 Unspecified chronic gastritis without bleeding (principal); K22.9 Disease of esophagus, unspecified; R19.4 Change in bowel habit; E28.2 Polycystic ovarian syndrome; J45.909 Unspecified asthma, uncomplicated; F39 Unspecified mood [affective] disorder; Z79.51 Long term (current) use of inhaled steroids; Z79.899 Other long term (current) drug therapy; Z88.8 Allergy status to other drugs, medicaments and biological substances; Z91.040 Latex allergy status; Z88.1 Allergy status to other antibiotic agents; Z88.6 Allergy status to analgesic agent
CPT/HCPCS: 81025; 88305; 45380; 43239; J2250; J2405; J2001; J3010; J2704

== ENCOUNTER → 2017-12-06 | Outpatient (CLI) | payer OTHER ==
--- NOTE | 2017-12-06 11:43 | US ---
EXAMINATION TYPE: US abdomen complete DATE OF EXAM: 12/06/2017 COMPARISON: 08/27 CLINICAL HISTORY: R10.11 RUQ PAIN. larger habitus, history of IBS EXAM MEASUREMENTS: Liver Length: 20.2 cm Gallbladder Wall: 0.2 cm CBD: 0.5 cm Spleen: 12.1 cm Right Kidney: 11.0 x 3.7 x 5.3 cm Left Kidney: 12.5 x 5.2 x 5.0 cm Some limitations due to overlying bowel gas. Pancreas: tail gassed out, visualized portions wnl Liver: enlarged, limited, heterogeneous and attenuating Gallbladder: wnl Evidence for sonographic Solorzano's sign: some tenderness CBD: wnl Spleen: wnl Right Kidney: wnl Left Kidney: wnl Upper IVC: wnl Abd Aorta: wnl as seen The intrahepatic portion of the IVC and proximal abdominal aorta are within normal limits. There is no evidence of cholelithiasis. Common bile duct is unremarkable. The visualized portions of the pa ncreas are homogenous. The spleen is unremarkable. Kidneys are symmetric and free of hydronephrosis . No renal lesions are seen. IMPRESSION: 1. Hepatomegaly with hepatic steatosis.
== END | disposition home or self-care (01) ==
LOC: RADUSWWP 11:03
PROVIDERS: ATTEND Family Medicine
DX: K76.0 Fatty (change of) liver, not elsewhere classified (principal); R16.0 Hepatomegaly, not elsewhere classified
CPT/HCPCS: 76700

== ENCOUNTER → 2018-04-17 | Outpatient (CLI) | payer OTHER ==
[2018-04-17 17:05] LABS: Blood Urea Nitrogen 13 mg/dL (7-17)
--- NOTE | 2018-04-18 08:25 | CT ---
EXAMINATION TYPE: CT abdomen pelvis w con DATE OF EXAM: 04/17/2018 HISTORY: RUQ pain CT DLP: 1939.30mGycm Automated Exposure Control for Dose Reduction was Utilized. CONTRAST: CT scan of the abdomen and pelvis is performed with IV Contrast, patient injected with 100 mL of Isov ue 300. COMPARISON: CT dated 09/06/2016 and ultrasound dated 12/06/2017 FINDINGS: LUNG BASES: No significant abnormality is appreciated. LIVER/GB: Hepatic parenchyma is diffusely hypoattenuated in comparison to that of the spleen, most co mmonly seen in hepatic steatosis. This finding limits evaluation for hepatic masses. Geographic subca psular regions of relative hyperattenuation likely representing focal fatty sparing. These are also n oted around the gallbladder fossa, a typical location for fatty sparing. No gross evidence of hepatic mass is seen. No intrahepatic biliary ductal dilatation. No cholelithiasis. PANCREAS: No significant abnormality is seen. SPLEEN: No significant abnormality is seen. ADRENALS: No significant abnormality is seen. KIDNEYS: No significant abnormality is seen. BOWEL: Appendix is within normal limits of size and retrocecal. No dilated large or small bowel. UTERUS/ADNEXA: Follicular and/or cystic changes are seen of the ovaries, likely physiologic in premen opausal female. LYMPH NODES: No greater than 1cm abdominal or pelvic lymph nodes are appreciated. Few clustered nonen larged right lower quadrant lymph nodes on series 3 image 56 are similar to the prior of 2017. OSSEOUS STRUCTURES: No significant abnormality is seen. OTHER: There is very mild diastases recti. IMPRESSION: 1. Redemonstration of hepatic steatosis, appearing at least moderate in degree. 2. Clustered nonenlarged right lower quadrant lymph nodes are unchanged and can be seen in mesenteric adenitis.
== END | disposition home or self-care (01) ==
LOC: RADCTMAIN 16:05
DX: K76.0 Fatty (change of) liver, not elsewhere classified (principal)
CPT/HCPCS: 82565; 84520; 74177; Q9967

== ENCOUNTER → 2018-06-26 | Outpatient (CLI) | payer OTHER ==
--- NOTE | 2018-06-27 07:57 | XR ---
Left ankle HISTORY: Trauma and pain 3 views of the left ankle There is soft tissue swelling. Bone mineralization, joint spaces and alignment are maintained. IMPRESSION: No fracture or dislocation. Soft tissue swelling. Follow-up as indicated.
== END | disposition home or self-care (01) ==
LOC: RADXRMAIN 15:41
PROVIDERS: ATTEND Physician Assistant
DX: S99.912A Unspecified injury of left ankle, initial encounter (principal)

== ENCOUNTER → 2018-06-27 | Outpatient (CLI) | payer OTHER ==
[2018-06-27 15:15] LABS: Basophils % (A) 1 %; Eosinophils # (A) 0.3 k/uL (0-0.7); Eosinophils % (A) 4 %; HCT 39.7 % (34.0-46.0); Lymphocytes % (A) 29 %; MCH 28.2 pg (25.0-35.0); MCHC 32.7 g/dL (31.0-37.0); MCV 86.2 fL (80.0-100.0); Mean Platelet Volume 7.4; Monocytes # (A) 0.2 k/uL (0-1.0); Monocytes % (A) 3 %; Neutrophils # (A) 4.4 k/uL (1.3-7.7); Neutrophils % (A) 63 %; Platelet Count 245 k/uL (150-450); RBC 4.61 m/uL (3.80-5.40); RDW 13.4 % (11.5-15.5)
[2018-06-27 18:57] LABS: HCG,Quantitative Serum <2.0 mIU/mL; Insulin Level 26.5 mIU/mL (3.0-25.0)
[2018-06-27 23:50] LABS: Hemoglobin A1C 5.4 % (4.0-6.0)
== END | disposition home or self-care (01) ==
LOC: LABWHC1 14:59
PROVIDERS: ATTEND Obstetrics & Gynecology
DX: N91.2 Amenorrhea, unspecified (principal)
CPT/HCPCS: 36415; 82670; 83001; 83002; 83036; 83525; 84146; 84439; 84443; 84702; 85025

== ENCOUNTER → 2019-03-14 | Outpatient (CLI) | payer OTHER ==
--- NOTE | 2019-03-15 23:54 | CT ---
EXAMINATION TYPE: CT brain wo con DATE OF EXAM: 03/14/2019 COMPARISON: 12/10/2016 HISTORY: 23-year-old female with headache, visual disturbance TECHNIQUE: Examination was done in axial plane without intravenous contrast. Coronal and sagittal r econstructions performed. CT DLP: 999.8 mGycm Automated exposure control for dose reduction was used. FINDINGS: There is no evidence of acute intracranial hemorrhage, acute ischemic changes, mass, mass-effect, or extra-axial fluid collection. There is no effacement of cerebral sulci or basal subarachnoid cister ns. There is no hydrocephalus. There is no midline shift. Guerrero-white matter distinction is preserv ed. Stable incidental scattered dural calcifications along the superior midline likely dystrophic. Moderate mucosal thickening anterior left ethmoid air cells. Mastoid air cells are well pneumatized. Orbits and globes appear intact. IMPRESSION: Stable exam. No acute intracranial abnormality seen.
== END | disposition home or self-care (01) ==
LOC: RADCTMAIN 10:54
PROVIDERS: ATTEND Family Medicine
DX: R51 Headache (principal)
CPT/HCPCS: 70450

== ENCOUNTER 2019-05-01 15:31 | Emergency (ER) | payer OTHER ==
[2019-05-01 15:41] VITALS: TEMP 98.8
--- NOTE | 2019-05-01 16:14 | ED ---
Chest Pain HPI - General Chief Complaint: Chest Pain Stated Complaint: chest pain Time Seen by Provider: 05/01/19 15:58 Source: patient Mode of arrival: ambulatory Limitations: no limitations - History of Present Illness Initial Comments: Patient is a 23-year-old female presenting to the emergency room with a chief complaint of chest pain. Patient reports symptoms began about 3 days ago and it's located on the right and left sternal border. Patient reports the pain is worse when she takes full inspiration. She also reports the pain is exacerbated with palpation in the region. Does report some shortness of breath due to the pain. Denies any diaphoretic episodes, light headedness, dizziness, nausea or vomiting. Denies any cough or upper respiratory symptoms. - Related Data Home Medications Medication Instructions Recorded Confirmed Sertraline [Zoloft] 50 mg PO DAILY 06/25/17 07/15/17 clonazePAM [KlonoPIN] 0.5 mg PO TID PRN 07/15/17 07/15/17 Allergies Allergy/AdvReac Type Severity Reaction Status Date / Time albuterol Allergy Rash/Hives Verified 05/01/19 15:41 azithromycin AdvReac Unknown Verified 05/01/19 15:41 Childhood divalproex sodium AdvReac Unknown Verified 05/01/19 15:41 [From Depakote] Latex, Natural Rubber AdvReac Itching Verified 05/01/19 15:41 sumatriptan [From Imitrex] AdvReac Diarrhea Verified 05/01/19 15:41 sumatriptan succinate AdvReac Diarrhea Verified 05/01/19 15:41 [From Imitrex] topiramate [From Topamax] AdvReac Unknown Verified 05/01/19 15:41 Review of Systems ROS Statement: Those systems with pertinent positive or pertinent negative responses have been documented in the HPI. ROS Other: All systems not noted in ROS Statement are negative. EKG Findings - EKG Comments: EKG Findings:: Sinus rhythm, no ST changes. Ventricular rate 90, AZ 140, QRS 82, QTC 445. Past Medical History Past Medical History: Asthma Additional Past Medical History / Comment(s): PCOS. HEART PALPITATIONS History of Any Multi-Drug Resistant Organisms: None Reported Past Surgical History: Adenoidectomy, Ear Surgery, Tonsillectomy Additional Past Surgical History / Comment(s): Patient had tympanostomy tubes placed as a child. Past Anesthesia/Blood Transfusion Reactions: Postoperative Nausea & Vomiting (PONV) Past Psychological History: Anxiety, Depression Smoking Status: Never smoker Past Alcohol Use History: None Reported Past Drug Use History: None Reported General Exam Limitations: no limitations General appearance: alert, in no apparent distress, obese Head exam: Present: atraumatic, normocephalic, normal inspection Eye exam: Present: normal appearance, PERRL, EOMI Pupils: Present: normal accommodation ENT exam: Present: normal exam Neck exam: Present: normal inspection, full ROM Respiratory exam: Present: normal lung sounds bilaterally, chest wall tenderness (Reproducible chest wall tenderness along the right and left sternal borders) Cardiovascular Exam: Present: regular rate, normal rhythm, normal heart sounds Extremities exam: Present: normal inspection, full ROM Back exam: Present: normal inspection, full ROM Neurological exam: Present: alert, oriented X3 Psychiatric exam: Present: normal affect, normal mood Skin exam: Present: warm, dry, intact, normal color Course Vital Signs 05/01/19 05/01/19 05/01/19 15:38 15:41 16:41 Temperature 98.8 F Pulse Rate 80 81 Respiratory 16 18 18 Rate Blood Pressure 152/89 132/92 O2 Sat by Pulse 100 99 Oximetry 05/01/19 05/01/19 05/01/19 16:52 17:00 17:30 Temperature Pulse Rate 83 76 81 Respiratory 18 Rate Blood Pressure 132/92 126/74 O2 Sat by Pulse 99 97 99 Oximetry 05/01/19 17:47 Temperature Pulse Rate Respiratory 20 Rate Blood Pressure O2 Sat by Pulse Oximetry Chest Pain MDM - Differential Diagnosis Chest Wall Syndrome - [facility] Patient is a 23-year-old female presents emergency Department with a chief complaint of chest pain. On exam patient has reproducible chest pain on the left and right sternal borders. Chest x-ray is unremarkable. EKG shows normal sinus rhythm with no ST changes. I suspect the patient has costochondritis. Patient was given Toradol in the ED. Patient advised to take NSAIDs [id number] for the next week. Return parameters thoroughly discussed the patient was understanding and agreeable. Case discussed with physician. Disposition Clinical Impression: Costochondritis, acute Disposition: HOME SELF-CARE Condition: Stable Instructions (If sedation given, give patient instructions): Costochondritis (ED) Additional Instructions: Take ibuprofen for the next week. Return to emergency department if symptoms worsen. Is patient prescribed a controlled substance at d/c from ED?: No Referrals: Tex Mendoza MD [Primary Care Provider] - 1-2 days Time of Disposition: 17:38
[2019-05-01] MEDS ORDERED: KETOROLAC 30 MG/ML 1 ML VIAL IVP STA (16:35)
--- NOTE | 2019-05-01 16:43 | XR ---
EXAMINATION TYPE: XR chest 2V DATE OF EXAM: 05/01/2019 COMPARISON: 05/21/2017 HISTORY: Chest pain TECHNIQUE: FINDINGS: Heart and mediastinum are normal. Lungs are clear. Diaphragm is normal. Bony thorax appears normal. IMPRESSION: Normal chest. No change.
[2019-05-01 17:48] VITALS: BP 126/74; PULSE 81; RESP 20
== END 2019-05-01 17:51 | disposition home or self-care (01) ==
LOC: EC 15:31
DX: M94.0 Chondrocostal junction syndrome [Tietze] (principal); F32.9 Major depressive disorder, single episode, unspecified; F41.9 Anxiety disorder, unspecified; Z88.1 Allergy status to other antibiotic agents; Z88.8 Allergy status to other drugs, medicaments and biological substances; Z91.040 Latex allergy status; Z79.899 Other long term (current) drug therapy
CPT/HCPCS: 71046; 99285; 96374; J1885; 93005

== ENCOUNTER 2019-09-18 13:32 | Emergency (ER) | payer OTHER ==
[2019-09-18 13:52] VITALS: TEMP 98.4
--- NOTE | 2019-09-18 14:01 | ED ---
Headache HPI - General Chief Complaint: Headache Stated Complaint: headache Time Seen by Provider: 09/18/19 14:01 Mode of arrival: ambulatory Limitations: no limitations - History of Present Illness Initial Comments: Patient is 24-year-old female with history of chronic migraines presents emergency Department with chief complaint of a headache. Patient states this migraine has not one for the past 3 days. States this is the worst headache of her life but it was gradual onset. Patient also reported some blurry vision this morning it lasted between 5-10 minutes. Patient reports there appeared to be "shadowing" in the left eye. She denies complete loss of vision She reports the pain started in the occipital region and is now radiating to her left eye. She does report photosensitivity nausea but no vomiting. Denies any periocular swelling or erythema. Patient reports she went to see Dr. Mendoza who advised her to come to emergency department for evaluation. Patient denies history of brain aneurysm. She denies one-sided weakness or paresthesias. - Related Data Home Medications Medication Instructions Recorded Confirmed Sertraline [Zoloft] 50 mg PO DAILY 06/25/17 07/15/17 clonazePAM [KlonoPIN] 0.5 mg PO TID PRN 07/15/17 07/15/17 Previous Rx's Medication Instructions Recorded Ondansetron Odt [Zofran Odt] 4 mg PO Q8HR PRN #14 tab 09/18/19 Allergies Allergy/AdvReac Type Severity Reaction Status Date / Time albuterol Allergy Rash/Hives Verified 09/18/19 13:53 azithromycin AdvReac Unknown Verified 09/18/19 13:53 Childhood divalproex sodium AdvReac Unknown Verified 09/18/19 13:53 [From Depakote] Latex, Natural Rubber AdvReac Itching Verified 09/18/19 13:53 sumatriptan [From Imitrex] AdvReac Diarrhea Verified 09/18/19 13:53 sumatriptan succinate AdvReac Diarrhea Verified 09/18/19 13:53 [From Imitrex] topiramate [From Topamax] AdvReac Unknown Verified 09/18/19 13:53 Review of Systems ROS Statement: Those systems with pertinent positive or pertinent negative responses have been documented in the HPI. ROS Other: All systems not noted in ROS Statement are negative. Past Medical History Past Medical History: Asthma Additional Past Medical History / Comment(s): PCOS. HEART PALPITATIONS History of Any Multi-Drug Resistant Organisms: None Reported Past Surgical History: Adenoidectomy, Ear Surgery, Tonsillectomy Additional Past Surgical History / Comment(s): Patient had tympanostomy tubes placed as a child. Past Anesthesia/Blood Transfusion Reactions: Postoperative Nausea & Vomiting (PONV) Past Psychological History: Anxiety, Depression Smoking Status: Never smoker Past Alcohol Use History: None Reported Past Drug Use History: None Reported General Exam Limitations: no limitations General appearance: alert, in no apparent distress, obese Head exam: Present: atraumatic, normocephalic, normal inspection Eye exam: Present: normal appearance, PERRL, EOMI. Absent: other (No detectable optic nerve swelling with limited view.) Pupils: Present: normal accommodation ENT exam: Present: normal exam, normal oropharynx, mucous membranes moist Neck exam: Present: normal inspection, full ROM. Absent: tenderness Respiratory exam: Present: normal lung sounds bilaterally. Absent: respiratory distress, wheezes, rales Cardiovascular Exam: Present: regular rate, normal rhythm, normal heart sounds Extremities exam: Present: normal inspection, full ROM, normal capillary refill, other (+2 ulnar and radial pulses bilateral.). Absent: tenderness Back exam: Present: normal inspection, full ROM. Absent: CVA tenderness (R), CVA tenderness (L) Neurological exam: Present: alert, oriented X3, CN II-XII intact, normal gait Expanded Patient oriented to: Present: person, place, time Speech: Present: fluid speech Cerebellar function: Finger to Nose: Normal Upper motor neuron: Pronator Drift: Normal Sensory exam: Upper Extremity Light Touch: Normal, Lower Extremity Light Touch: Normal Motor strength exam: RUE: 5, LUE: 5, RLE: 5, LLE: 5 Psychiatric exam: Present: normal affect, normal mood Skin exam: Present: warm, dry, intact, normal color Course Vital Signs 09/18/19 09/18/19 09/18/19 13:49 13:52 14:52 Temperature 98.4 F Pulse Rate 105 H 76 Respiratory 16 18 18 Rate Blood Pressure 146/93 116/74 O2 Sat by Pulse 99 99 Oximetry 09/18/19 09/18/19 15:00 16:48 Temperature Pulse Rate 71 Respiratory 18 18 Rate Blood Pressure 114/70 O2 Sat by Pulse 99 99 Oximetry Medical Decision Making - Medical Decision Making Patient is 24-year-old female with history of migraines presenting to the emergency department with a chief complaint of headache. Patient had a brief moment of shadowing in the left eye that started this morning lasted between 5 and 10 minutes. Gradual onset headache but it is the worst headache of her life. CT of the brain without contrast obtained shows no acute processes. Patient also had a brain CT performed twice in 2016 and once in March 2019 showing the exact same results. Patient states she is to see her neurologist who has her scheduled for an MRI an additional testing such as EEG. Patient was given Reglan, Benadryl and Toradol. Reevaluation patient reports improvement of symptoms. States the pain is lumbar manageable now and the nausea has resolved. Patient will be discharged with Zofran. Return parameters were thoroughly discussed patient was or standing agreeable. Case discussed with physician. Disposition Clinical Impression: Headache, Photosensitivity Disposition: HOME SELF-CARE Condition: Good Instructions (If sedation given, give patient instructions): Acute Headache (ED) Additional Instructions: Follow with a neurologist. Return to emergency department if symptoms worsen. Take prescribed medication as directed. Prescriptions: Ondansetron Odt [Zofran Odt] 4 mg PO Q8HR PRN #14 tab PRN Reason: Nausea Is patient prescribed a controlled substance at d/c from ED?: No Referrals: Tex Mendoza MD [Primary Care Provider] - 1-2 days Time of Disposition: 15:35
[2019-09-18] MEDS ORDERED: METOCLOPRAMIDE 5 MG/ML 2 ML VIAL IVP STA (14:21)
[2019-09-18] MEDS ORDERED: diphenhydrAMINE 50 MG/ML 1 ML VIAL IVP STA (14:21)
[2019-09-18] MEDS ORDERED: KETOROLAC 30 MG/ML 1 ML VIAL IVP STA (14:22)
--- NOTE | 2019-09-18 15:07 | CT ---
EXAMINATION TYPE: CT brain wo con DATE OF EXAM: 09/18/2019 COMPARISON: CT brain March 14, 2019. HISTORY: headache, dizziness, nausea CT DLP: 1080.4 mGycm. Automated Exposure Control for Dose Reduction was Utilized. TECHNIQUE: CT scan of the head is performed without contrast. FINDINGS: There is no acute intracranial hemorrhage, mass effect, or midline shift identified. The ventricles and sulci are within normal limits in size. Guerrero-white matter differentiation is maintain ed. The calvarium is intact. The globes are intact and the visualized sinuses are clear. IMPRESSION: No acute intracranial hemorrhage or midline shift is seen. No significant change from pr ior.
[2019-09-18 15:50] VITALS: RESP 18
[2019-09-18 16:51] VITALS: BP 114/70; PULSE 71
== END 2019-09-18 16:52 | disposition home or self-care (01) ==
LOC: EC 13:32
DX: R51 Headache (principal); H53.8 Other visual disturbances; F41.9 Anxiety disorder, unspecified; F32.9 Major depressive disorder, single episode, unspecified; Z79.899 Other long term (current) drug therapy; Z88.8 Allergy status to other drugs, medicaments and biological substances; Z88.1 Allergy status to other antibiotic agents; Z86.69 Personal history of other diseases of the nervous system and sense organs; Z91.040 Latex allergy status
CPT/HCPCS: 70450; 99284; 96374; 96375 ×2; J1200; J2765; J1885

== ENCOUNTER → 2020-05-02 | Outpatient (CLI) | payer OTHER | END | disposition home or self-care (01) | LOC: LABWHC1 17:14 | PROVIDERS: ATTEND Family Medicine | DX: Z20.822 Contact with and (suspected) exposure to COVID-19 (principal) | CPT/HCPCS: U0003; C9803 ==

== ENCOUNTER 2020-05-05 20:59 | Emergency (ER) | payer OTHER ==
[2020-05-05 21:26] VITALS: BP 145/90; PULSE 108; RESP 18; TEMP 98.7
--- NOTE | 2020-05-05 21:51 | ED ---
General Adult HPI - General Chief complaint: Chest Pain Stated complaint: Chest pain/SOB Time Seen by Provider: 05/05/20 21:29 Source: patient Mode of arrival: wheelchair Limitations: no limitations - History of Present Illness Initial comments: Dictation was produced using [employer] dictation software. please excuse any grammatical, word or spelling errors. This patient was cared for during a federal and state declared state of emergency secondary to Covid 19 Chief Complaint: 24-year-old female with past medical history of anxiety, pCO2 aspirin presents with chest pain History of Present Illness: 24-year-old female presents with chest pain. Patient states that she is benign and asymptomatic for Covid 19. She tested positive last week. Patient states she's been having chest pains ever since the onset of her Covid symptoms. She states that since yesterday she's been having worsening sharp chest pain. States the pain is to her anterior chest and epigastric area. States it radiates to her neck. Patient has a history of blood clots. She does take control. She has been taking Tylenol to control her fevers and her chest symptoms. The ROS documented in this emergency department record has been reviewed and con firmed by me. Those systems with pertinent positive or negative responses have been documented in the HPI. All other systems are other negative and/or noncontributory. PHYSICAL EXAM: General Impression: Alert and oriented x3, not in acute distress HEENT: Normocephalic atraumatic, extra-ocular movements intact, pupils equal and reactive to light bilaterally, mucous membranes moist. Cardiovascular: Heart regular rate and rhythm Chest: Able to complete full sentences, no retractions, no tachypnea, bilateral breath sounds Abdomen: abdomen soft, non-tender, non-distended, no organomegaly Musculoskeletal: Pulses present and equal in all extremities, no peripheral edema Motor: no focal deficits noted Neurological: CN II-XII grossly intact, no focal motor or sensory deficits noted Skin: Intact with no visualized rashes Psych: Normal affect and mood ED course: 24 y old female presents to the emergency department for pleuritic chest pain. She is Covid positive. She's been symptomatic for 9 days. Signs upon arrival shows heart rate of 108, rest of vital signs within acceptable limits per she has past medical history of anxiety and tachycardia. Laboratory evaluation obtained. CBC unremarkable. Coag panel is negative. D- dimer is negative. Metabolic panel is negative. Urine hCG is negative. Chest x-ray shows no active cardiopulmonary disease. Troponin is negative. No conc mimi for PE. Patient's pain is pleurisy. No concern for acute coronary syndrome. Patient states that she has normal tachycardia. Patient is not hypoxic and will be discharged home. Given Toradol. EKG interpretation: Ventricular rate 117, sinus tachycardia, NC interval 152, QRS 86, QTC 457. No NC prolongation, no QTC prolongation, no ST or T-wave changes noted. Overall, this EKG is unremarkable - Related Data Home Medications Medication Instructions Recorded Confirmed clonazePAM [KlonoPIN] 0.5 mg PO TID PRN 07/15/17 05/05/20 Acetaminophen [Tylenol Extra 1,000 mg PO Q6H PRN 05/05/20 05/05/20 Strength] Ascorbic Acid [Vitamin C] 500 mg PO DAILY 05/05/20 05/05/20 Cholecalciferol [Vitamin D3 (25 50 mcg PO DAILY 05/05/20 05/05/20 Mcg = 1000 Iu)] Cyclobenzaprine [Flexeril] 10 mg PO HS 05/05/20 05/05/20 Drospirenone [Slynd] 4 mg PO DAILY 05/05/20 05/05/20 Omeprazole [PriLOSEC] 40 mg PO DAILY 05/05/20 05/05/20 Zinc Sulfate 220 mg PO DAILY 05/05/20 05/05/20 methylPREDNISolone [Medrol Dose See Taper PO DIRECTED 05/05/20 05/05/20 Pack] Previous Rx's Medication Instructions Recorded Ondansetron Odt [Zofran Odt] 4 mg PO Q8HR PRN #14 tab 09/18/19 Allergies Allergy/AdvReac Type Severity Reaction Status Date / Time albuterol Allergy Rash/Hives Verified 05/05/20 22:14 azithromycin AdvReac Unknown Verified 05/05/20 22:14 Childhood divalproex sodium AdvReac Unknown Verified 05/05/20 22:14 [From Depakote] Latex, Natural Rubber AdvReac Itching Verified 05/05/20 22:14 sumatriptan [From Imitrex] AdvReac Diarrhea Verified 05/05/20 22:14 sumatriptan succinate AdvReac Diarrhea Verified 05/05/20 22:14 [From Imitrex] topiramate [From Topamax] AdvReac Unknown Verified 05/05/20 22:14 Review of Systems ROS Statement: Those systems with pertinent positive or pertinent negative responses have been documented in the HPI. ROS Other: All systems not noted in ROS Statement are negative. Past Medical History Past Medical History: Asthma Additional Past Medical History / Comment(s): PCOS. HEART PALPITATIONS History of Any Multi-Drug Resistant Organisms: None Reported Past Surgical History: Adenoidectomy, Ear Surgery, Tonsillectomy Additional Past Surgical History / Comment(s): Patient had tympanostomy tubes placed as a child. Past Anesthesia/Blood Transfusion Reactions: Postoperative Nausea & Vomiting (PONV) Past Psychological History: Anxiety, Depression Smoking Status: Never smoker Past Alcohol Use History: None Reported Past Drug Use History: None Reported General Exam Limitations: no limitations Course Vital Signs 05/05/20 21:21 Temperature 98.7 F Pulse Rate 108 H Respiratory 18 Rate Blood Pressure 145/90 O2 Sat by Pulse 100 Oximetry Medical Decision Making - Lab Data Result diagrams: 05/05/20 21:50 05/05/20 21:50 Lab Results 05/05/20 05/05/20 05/05/20 Range/Units 21:50 21:50 21:50 WBC 5.7 (3.8-10.6) k/uL RBC 5.01 (3.80-5.40) m/uL Hgb 14.5 (11.4-16.0) gm/dL Hct 42.8 (34.0-46.0) % MCV 85.4 (80.0-100.0) fL MCH 28.9 (25.0-35.0) pg MCHC 33.8 (31.0-37.0) g/dL RDW 13.1 (11.5-15.5) % Plt Count 223 (150-450) k/uL MPV 7.5 Neutrophils % 70 % Lymphocytes % 22 % Monocytes % 7 % Eosinophils % 0 % Basophils % 0 % Neutrophils # 4.0 (1.3-7.7) k/uL Lymphocytes # 1.2 (1.0-4.8) k/uL Monocytes # 0.4 (0-1.0) k/uL Eosinophils # 0.0 (0-0.7) k/uL Basophils # 0.0 (0-0.2) k/uL PT 10.2 (9.0-12.0) sec INR 0.9 (<1.2) APTT 21.4 L (22.0-30.0) sec D-Dimer 0.22 (<0.60) mg/L FEU Sodium (137-145) mmol/L Potassium (3.5-5.1) mmol/L Chloride (98-107) mmol/L Carbon Dioxide (22-30) mmol/L Anion Gap mmol/L BUN (7-17) mg/dL Creatinine (0.52-1.04) mg/dL Est GFR (CKD-EPI)AfAm (>60 ml/min/1.73 sqM) Est GFR (CKD-EPI)NonAf (>60 ml/min/1.73 sqM) Glucose (74-99) mg/dL Calcium (8.4-10.2) mg/dL Troponin I (0.000-0.034) ng/mL Urine HCG, Qual Not Detected (Not Detectd) 05/05/20 05/05/20 Range/Units 21:50 21:50 WBC (3.8-10.6) k/uL RBC (3.80-5.40) m/uL Hgb (11.4-16.0) gm/dL Hct (34.0-46.0) % MCV (80.0-100.0) fL MCH (25.0-35.0) pg MCHC (31.0-37.0) g/dL RDW (11.5-15.5) % Plt Count (150-450) k/uL MPV Neutrophils % % Lymphocytes % % Monocytes % % Eosinophils % % Basophils % % Neutrophils # (1.3-7.7) k/uL Lymphocytes # (1.0-4.8) k/uL Monocytes # (0-1.0) k/uL Eosinophils # (0-0.7) k/uL Basophils # (0-0.2) k/uL PT (9.0-12.0) sec INR (<1.2) APTT (22.0-30.0) sec D-Dimer (<0.60) mg/L FEU Sodium 142 (137-145) mmol/L Potassium 4.0 (3.5-5.1) mmol/L Chloride 103 (98-107) mmol/L Carbon Dioxide 29 (22-30) mmol/L Anion Gap 10 mmol/L BUN 14 (7-17) mg/dL Creatinine 0.72 (0.52-1.04) mg/dL Est GFR (CKD-EPI)AfAm >90 (>60 ml/min/1.73 sqM) Est GFR (CKD-EPI)NonAf >90 (>60 ml/min/1.73 sqM) Glucose 109 H (74-99) mg/dL Calcium 9.7 (8.4-10.2) mg/dL Troponin I <0.012 (0.000-0.034) ng/mL Urine HCG, Qual (Not Detectd) Disposition Clinical Impression: COVID-19 Disposition: HOME SELF-CARE Condition: Fair Instructions (If sedation given, give patient instructions): Viral Pneumonia ( ED) Is patient prescribed a controlled substance at d/c from ED?: No Referrals: None,Stated [REFERRING] - 1-2 days Time of Disposition: 22:55
[2020-05-05 22:24] LABS: African American GFR (CKD) >90 (>60 ml/min/1.73 sqM); Anion Gap 10 mmol/L; Basophils % (A) 0 %; Blood Urea Nitrogen 14 mg/dL (7-17); Calcium 9.7 mg/dL (8.4-10.2); Carbon Dioxide 29 mmol/L (22-30); Chloride 103 mmol/L (98-107); Eosinophils % (A) 0 %; Glucose 109 mg/dL (74-99); HCT 42.8 % (34.0-46.0); HGB 14.5 gm/dL (11.4-16.0); Lymphocytes # (A) 1.2 k/uL (1.0-4.8); Lymphocytes % (A) 22 %; MCH 28.9 pg (25.0-35.0); MCHC 33.8 g/dL (31.0-37.0); MCV 85.4 fL (80.0-100.0); Mean Platelet Volume 7.5; Monocytes # (A) 0.4 k/uL (0-1.0); Monocytes % (A) 7 %; Neutrophils % (A) 70 %; Non-African American GFR(CKD) >90 (>60 ml/min/1.73 sqM); Platelet Count 223 k/uL (150-450); RBC 5.01 m/uL (3.80-5.40); RDW 13.1 % (11.5-15.5); Sodium 142 mmol/L (137-145); WBC 5.7 k/uL (3.8-10.6)
[2020-05-05 22:36] LABS: INR 0.9 (<1.2); Partial Thromboplastin Time 21.4 sec (22.0-30.0); Prothrombin Time 10.2 sec (9.0-12.0)
[2020-05-05 22:38] LABS: D-Dimer 0.22 mg/L FEU (<0.60)
--- NOTE | 2020-05-05 22:43 | XR ---
EXAMINATION TYPE: XR chest 1V portable DATE OF EXAM: 05/05/2020 COMPARISON: 05/01/2019 HISTORY: Chest pain TECHNIQUE: Single view FINDINGS: Heart and mediastinum are normal. Lungs are clear. Costophrenic angles are clear. There are chest leads. There are no hilar masses. The bony thorax is intact. IMPRESSION: No active cardiopulmonary disease. Normal heart. No change.
[2020-05-05] MEDS ORDERED: KETOROLAC 15 MG/ML 1 ML VIAL IVP STA (22:54)
--- NOTE | 2020-05-05 23:02 | ED ---
Medical Decision Making - Medical Decision Making Patient met criteria for monoclonal antibodies. Patient will receive monoclonal antibodies. She tolerated monoclonal antibody infusion. Patient was discharged. - Lab Data Result diagrams: 05/05/20 21:50 05/05/20 21:50 Lab Results 05/05/20 05/05/20 05/05/20 Range/Units 21:50 21:50 21:50 WBC 5.7 (3.8-10.6) k/uL RBC 5.01 (3.80-5.40) m/uL Hgb 14.5 (11.4-16.0) gm/dL Hct 42.8 (34.0-46.0) % MCV 85.4 (80.0-100.0) fL MCH 28.9 (25.0-35.0) pg MCHC 33.8 (31.0-37.0) g/dL RDW 13.1 (11.5-15.5) % Plt Count 223 (150-450) k/uL MPV 7.5 Neutrophils % 70 % Lymphocytes % 22 % Monocytes % 7 % Eosinophils % 0 % Basophils % 0 % Neutrophils # 4.0 (1.3-7.7) k/uL Lymphocytes # 1.2 (1.0-4.8) k/uL Monocytes # 0.4 (0-1.0) k/uL Eosinophils # 0.0 (0-0.7) k/uL Basophils # 0.0 (0-0.2) k/uL PT 10.2 (9.0-12.0) sec INR 0.9 (<1.2) APTT 21.4 L (22.0-30.0) sec D-Dimer 0.22 (<0.60) mg/L FEU Sodium (137-145) mmol/L Potassium (3.5-5.1) mmol/L Chloride (98-107) mmol/L Carbon Dioxide (22-30) mmol/L Anion Gap mmol/L BUN (7-17) mg/dL Creatinine (0.52-1.04) mg/dL Est GFR (CKD-EPI)AfAm (>60 ml/min/1.73 sqM) Est GFR (CKD-EPI)NonAf (>60 ml/min/1.73 sqM) Glucose (74-99) mg/dL Calcium (8.4-10.2) mg/dL Troponin I (0.000-0.034) ng/mL Urine HCG, Qual Not Detected (Not Detectd) 05/05/20 05/05/20 Range/Units 21:50 21:50 WBC (3.8-10.6) k/uL RBC (3.80-5.40) m/uL Hgb (11.4-16.0) gm/dL Hct (34.0-46.0) % MCV (80.0-100.0) fL MCH (25.0-35.0) pg MCHC (31.0-37.0) g/dL RDW (11.5-15.5) % Plt Count (150-450) k/uL MPV Neutrophils % % Lymphocytes % % Monocytes % % Eosinophils % % Basophils % % Neutrophils # (1.3-7.7) k/uL Lymphocytes # (1.0-4.8) k/uL Monocytes # (0-1.0) k/uL Eosinophils # (0-0.7) k/uL Basophils # (0-0.2) k/uL PT (9.0-12.0) sec INR (<1.2) APTT (22.0-30.0) sec D-Dimer (<0.60) mg/L FEU Sodium 142 (137-145) mmol/L Potassium 4.0 (3.5-5.1) mmol/L Chloride 103 (98-107) mmol/L Carbon Dioxide 29 (22-30) mmol/L Anion Gap 10 mmol/L BUN 14 (7-17) mg/dL Creatinine 0.72 (0.52-1.04) mg/dL Est GFR (CKD-EPI)AfAm >90 (>60 ml/min/1.73 sqM) Est GFR (CKD-EPI)NonAf >90 (>60 ml/min/1.73 sqM) Glucose 109 H (74-99) mg/dL Calcium 9.7 (8.4-10.2) mg/dL Troponin I <0.012 (0.000-0.034) ng/mL Urine HCG, Qual (Not Detectd) Disposition Clinical Impression: COVID-19 Disposition: HOME SELF-CARE Condition: Fair Instructions (If sedation given, give patient instructions): Viral Pneumonia (ED) Is patient prescribed a controlled substance at d/c from ED?: No Referrals: None,Stated [REFERRING] - 1-2 days Time of Disposition: 15:10
[2020-05-05] MEDS ORDERED: BAMLANIVIMAB 700 MG in SODIUM CHLORIDE 0.9% 50 ML IVPB ONE (23:09)
== END 2020-05-06 03:15 | disposition home or self-care (01) ==
LOC: EC 20:59
DX: U07.1 COVID-19 (principal); R07.81 Pleurodynia; F41.9 Anxiety disorder, unspecified; F32.9 Major depressive disorder, single episode, unspecified; Z88.1 Allergy status to other antibiotic agents; Z88.8 Allergy status to other drugs, medicaments and biological substances; Z91.040 Latex allergy status; Z79.52 Long term (current) use of systemic steroids; Z79.899 Other long term (current) drug therapy
CPT/HCPCS: 36415; 71045; 80048; 81025; 84484; 85025; 85379; 85610; 85730; 93005; 99285

== ENCOUNTER → 2020-09-14 | Outpatient (CLI) | payer OTHER ==
[2020-09-14 23:27] LABS: Basophils # (A) 0.04 X 10*3/uL (0.00-0.10); Basophils % (A) 0.6 %; Eosinophils # (A) 0.24 X 10*3/uL (0.04-0.35); Eosinophils % (A) 3.6 %; HCT 42.6 % (37.2-46.3); HGB 13.9 g/dL (12.0-15.0); Lymphocytes # (A) 2.12 X 10*3/uL (0.90-5.00); Lymphocytes % (A) 31.6 %; MCH 28.5 pg (27.0-32.0); MCHC 32.6 g/dL (32.0-37.0); MCV 87.3 fL (80.0-97.0); Monocytes # (A) 0.29 X 10*3/uL (0.20-1.00); Monocytes % (A) 4.3 %; Neutrophils # (A) 4.01 X 10*3/uL (1.80-7.70); Neutrophils % (A) 59.9 %; Platelet Count 262 X 10*3/uL (140-440); RBC 4.88 X 10*6/uL (4.10-5.20); RDW 12.4 % (11.5-14.5)
[2020-09-15 06:09] LABS: African American GFR (CKD) 117.1 (60.0-200.0); Albumin 4.9 g/dL (3.80-4.90); Albumin/Globulin Ratio 1.81 (1.60-3.17); Anion Gap 10.9 mmol/L (4.00-12.00); BUN/Creat Ratio 17.5 Ratio (12.00-20.00); Carbon Dioxide 25.1 mmol/L (21.6-31.8); Globulin 2.7 g/dL (1.6-3.3); Potassium 4.7 mmol/L (3.5-5.5); Total Bilirubin 0.5 mg/dL (0.2-1.2); Total Protein 7.6 g/dL (6.2-8.2)
[2020-09-15 06:23] LABS: Folate, Serum 17.2 ng/mL
[2020-09-15 06:35] LABS: Hepatitis A Antibody IgM Non-Reactive (Non-Reactive); Hepatitis B Core IgM Non-Reactive (Non-Reactive); Hepatitis B Surface Antigen Non-Reactive (Non-Reactive); Hepatitis C IgG Antibody Non-Reactive (Non-Reactive)
== END | disposition home or self-care (01) ==
LOC: LABWHC1 14:11
PROVIDERS: ATTEND Psychiatry & Neurology Neurology
DX: G47.19 Other hypersomnia (principal)
CPT/HCPCS: 36415; 80053; 80074; 82306; 82607; 82746; 84443; 85025

== ENCOUNTER 2021-01-08 13:24 | Emergency (ER) | payer OTHER ==
[2021-01-08] MEDS ORDERED: predniSONE 50 MG TAB PO STA (15:24)
--- NOTE | 2021-01-08 15:29 | ED ---
General Adult HPI - General Chief complaint: Upper Respiratory Infection Stated complaint: covid exposure Time Seen by Provider: 01/08/21 14:57 Source: patient, RN notes reviewed Mode of arrival: ambulatory Limitations: no limitations - History of Present Illness Initial comments: 25-year-old female with a past medical history of asthma presents to the emergency room for a chief complaint of cough. Patient states that for the past 5 days she has had upper respiratory symptoms. She has had a cough and congestion. She has had slight shortness of breath. She does have a history of asthma. Patient states her boyfriend and her son both tested positive for COVID-19. Patient states the health department told her she should be tested as well.Patient has no other complaints at this time including chest pain, abdominal pain, nausea or vomiting, headache, or visual changes. - Related Data Home Medications Medication Instructions Recorded Confirmed clonazePAM [KlonoPIN] 0.5 mg PO TID PRN 07/15/17 05/05/20 Acetaminophen [Tylenol Extra 1,000 mg PO Q6H PRN 05/05/20 05/05/20 Strength] Ascorbic Acid [Vitamin C] 500 mg PO DAILY 05/05/20 05/05/20 Cholecalciferol [Vitamin D3 (25 50 mcg PO DAILY 05/05/20 05/05/20 Mcg = 1000 Iu)] Cyclobenzaprine [Flexeril] 10 mg PO HS 05/05/20 05/05/20 Drospirenone [Slynd] 4 mg PO DAILY 05/05/20 05/05/20 Omeprazole [PriLOSEC] 40 mg PO DAILY 05/05/20 05/05/20 Zinc Sulfate 220 mg PO DAILY 05/05/20 05/05/20 methylPREDNISolone [Medrol Dose See Taper PO DIRECTED 05/05/20 05/05/20 Pack] Previous Rx's Medication Instructions Recorded Ondansetron Odt [Zofran Odt] 4 mg PO Q8HR PRN #14 tab 09/18/19 predniSONE 50 mg PO DAILY #4 tablet 01/08/21 Allergies Allergy/AdvReac Type Severity Reaction Status Date / Time albuterol Allergy Rash/Hives Verified 05/05/20 22:14 azithromycin AdvReac Unknown Verified 01/08/21 13:55 Childhood divalproex sodium AdvReac Unknown Verified 01/08/21 13:55 [From Depakote] Latex, Natural Rubber AdvReac Itching Verified 01/08/21 13:55 sumatriptan [From Imitrex] AdvReac Diarrhea Verified 01/08/21 13:55 sumatriptan succinate AdvReac Diarrhea Verified 01/08/21 13:55 [From Imitrex] topiramate [From Topamax] AdvReac Unknown Verified 01/08/21 13:55 Review of Systems ROS Statement: Those systems with pertinent positive or pertinent negative responses have been documented in the HPI. ROS Other: All systems not noted in ROS Statement are negative. Past Medical History Past Medical History: Asthma, Sleep Apnea/CPAP/BIPAP Additional Past Medical History / Comment(s): PCOS. HEART PALPITATIONS History of Any Multi-Drug Resistant Organisms: None Reported Past Surgical History: Adenoidectomy, Ear Surgery, Tonsillectomy Additional Past Surgical History / Comment(s): Patient had tympanostomy tubes placed as a child. Past Anesthesia/Blood Transfusion Reactions: Postoperative Nausea & Vomiting (PONV) Past Psychological History: Anxiety, Depression Smoking Status: Never smoker Past Alcohol Use History: None Reported Past Drug Use History: None Reported General Exam Limitations: no limitations General appearance: alert, in no apparent distress Head exam: Present: atraumatic Eye exam: Present: normal appearance, PERRL, EOMI. Absent: scleral icterus, conjunctival injection ENT exam: Present: normal exam, mucous membranes moist Neck exam: Present: normal inspection, full ROM. Absent: tenderness Respiratory exam: Present: normal lung sounds bilaterally. Absent: respiratory distress, wheezes Cardiovascular Exam: Present: regular rate, normal rhythm, normal heart sounds GI/Abdominal exam: Present: soft, normal bowel sounds. Absent: distended, tenderness Course Vital Signs 01/08/21 13:51 Temperature 99.0 F Pulse Rate 103 H Respiratory 18 Rate Blood Pressure 124/78 O2 Sat by Pulse 96 Oximetry Medical Decision Making - Medical Decision Making Vitals are stable. Lungs are clear bilaterally. No respiratory distress. Patient is well appearing, sitting up on the side of the bed. COVID-19 is negative. Chest x-ray shows no acute process. Patient can be discharged home to follow up with primary care. We will start her on steroids given her history of asthma and shortness of breath. She will return here for any worsening symptoms. - Lab Data Lab Results 01/08/21 Range/Units 13:58 Coronavirus (PCR) Not Detected (Not Detectd) Disposition Clinical Impression: Cough Disposition: HOME SELF-CARE Condition: Good Instructions (If sedation given, give patient instructions): Upper Respiratory Infection (ED) Additional Instructions: Please follow up with primary care in 1-2 days. Return to the ER for any worsening symptoms. Prescriptions: predniSONE 50 mg PO DAILY #4 tablet Is patient prescribed a controlled substance at d/c from ED?: No Referrals: Tex Mendoza MD [Primary Care Provider] - 1-2 days Time of Disposition: 15:29
--- NOTE | 2021-01-08 15:35 | XR ---
EXAMINATION TYPE: XR chest 2V DATE OF EXAM: 01/08/2021 COMPARISON: 05/05/2020 HISTORY: Cough TECHNIQUE: FINDINGS: Heart and mediastinum are normal. Lungs are clear of infiltrate. Bony thorax is intact. Pul monary vascularity is normal. Diaphragm is normal. IMPRESSION: Normal chest.
[2021-01-08 16:32] VITALS: RESP 20
[2021-01-08 16:33] VITALS: BP 126/88; PULSE 80; TEMP 98.2
== END 2021-01-08 16:32 | disposition home or self-care (01) ==
LOC: EC 13:24
DX: R05.9 Cough, unspecified (principal); R06.02 Shortness of breath; R09.81 Nasal congestion; J45.909 Unspecified asthma, uncomplicated; Z88.8 Allergy status to other drugs, medicaments and biological substances; Z88.1 Allergy status to other antibiotic agents; Z91.040 Latex allergy status
CPT/HCPCS: 99285; 87635; 71046; J7512

== ENCOUNTER 2021-01-10 17:34 | Emergency (ER) | payer OTHER ==
[2021-01-10] MEDS ORDERED: SODIUM CHLORIDE 0.9% 1,000 ML IV STA (22:22)
[2021-01-10] MEDS ORDERED: ONDANSETRON 4 MG/2 ML VIAL IVP STA (22:22)
[2021-01-10] MEDS ORDERED: KETOROLAC 30 MG/ML 1 ML VIAL IVP STA (22:22)
[2021-01-10] MEDS ORDERED: SODIUM CHLORIDE 0.9% 50 ML IVPB ONE (23:00)
[2021-01-10] MEDS ORDERED: CASIRIVIMAB/IMDEVIMAB (EUA) 1,200 MG in SODIUM CHLORIDE 0.9% 100 ML IVPB ONE (23:00)
--- NOTE | 2021-01-11 00:02 | ED ---
General Adult HPI - General Chief complaint: Upper Respiratory Infection Stated complaint: Covid+/antibodies Time Seen by Provider: 01/10/21 21:25 Source: patient, RN notes reviewed Mode of arrival: ambulatory Limitations: no limitations - History of Present Illness Initial comments: 25-year-old female presents to the emergency department with complaints of chest congestion, headache, and nausea. States her child and her significant other are both Covid positive. States she was seen a few days ago for the same symptoms and tested negative at that time, but was started on an oral steroid and continues to have symptoms. States she spoke with her primary care provider who recommended she come to the ER for the monoclonal antibody infusion as she is a close contact exposure. Patient denies fever, chills, chest pain, shortness of breath, abdominal pain, constipation, diarrhea, hematuria, or dysuria. - Related Data Home Medications Medication Instructions Recorded Confirmed clonazePAM [KlonoPIN] 0.5 mg PO TID PRN 07/15/17 01/10/21 Cyclobenzaprine [Flexeril] 10 mg PO BID 05/05/20 01/10/21 Omeprazole [PriLOSEC] 40 mg PO DAILY 05/05/20 01/10/21 Albuterol Sulfate [Proair Hfa] 2 puff INHALATION RT-Q4H PRN 01/10/21 01/10/21 Gabapentin [Neurontin] 100 mg PO TID PRN 01/10/21 01/10/21 Ondansetron Odt [Zofran Odt] 4 mg PO Q4H PRN 01/10/21 01/10/21 Vitamin D3 1250 Mcg 1,250 mcg PO FR 01/10/21 01/10/21 medroxyPROGESTERone [Provera] 10 mg PO DIRECTED 01/10/21 01/10/21 metFORMIN HCL [Glucophage] 250 mg PO DAILY 01/10/21 01/10/21 Previous Rx's Medication Instructions Recorded predniSONE 50 mg PO DAILY #4 tablet 01/08/21 Ondansetron Odt [Zofran Odt] 4 mg PO Q8HR PRN #10 tab 01/11/21 Allergies Allergy/AdvReac Type Severity Reaction Status Date / Time azithromycin AdvReac Unknown Verified 01/10/21 22:15 Childhood divalproex sodium AdvReac Unknown Verified 01/10/21 22:15 [From Depakote] Latex, Natural Rubber AdvReac Itching Verified 01/10/21 22:15 sumatriptan [From Imitrex] AdvReac Diarrhea Verified 01/10/21 22:15 sumatriptan succinate AdvReac Diarrhea Verified 01/10/21 22:15 [From Imitrex] topiramate [From Topamax] AdvReac Unknown Verified 01/10/21 22:15 Review of Systems ROS Statement: Those systems with pertinent positive or pertinent negative responses have been documented in the HPI. ROS Other: All systems not noted in ROS Statement are negative. Past Medical History Past Medical History: Asthma, Sleep Apnea/CPAP/BIPAP Additional Past Medical History / Comment(s): PCOS. HEART PALPITATIONS History of Any Multi-Drug Resistant Organisms: None Reported Past Surgical History: Adenoidectomy, Ear Surgery, Tonsillectomy Additional Past Surgical History / Comment(s): Patient had tympanostomy tubes placed as a child. Past Anesthesia/Blood Transfusion Reactions: Postoperative Nausea & Vomiting (PONV) Past Psychological History: Anxiety, Depression Smoking Status: Never smoker Past Alcohol Use History: None Reported Past Drug Use History: None Reported General Exam Limitations: no limitations (Well-developed, well-nourished female in no acute distress. Initial temperature 97.8, pulse 90, respirations 20, blood pressure 128/82, pulse ox 99% on room air.) General appearance: alert, in no apparent distress Eye exam: Present: normal appearance, PERRL, EOMI. Absent: scleral icterus, conjunctival injection, periorbital swelling ENT exam: Present: normal exam, normal oropharynx, mucous membranes moist Respiratory exam: Present: normal lung sounds bilaterally. Absent: respiratory distress, wheezes, rales, rhonchi, stridor Cardiovascular Exam: Present: regular rate, normal rhythm, normal heart sounds. Absent: systolic murmur, diastolic murmur, rubs, gallop, clicks GI/Abdominal exam: Present: soft, normal bowel sounds. Absent: distended, tenderness, guarding, rebound, rigid Back exam: Absent: CVA tenderness (R), CVA tenderness (L) Neurological exam: Present: alert, oriented X3, CN II-XII intact Psychiatric exam: Present: normal affect, normal mood Skin exam: Present: warm, dry, intact, normal color. Absent: rash Course Vital Signs 01/10/21 01/10/21 19:29 22:48 Temperature 97.8 F 98.3 F Pulse Rate 90 88 Respiratory 20 16 Rate Blood Pressure 128/82 134/89 O2 Sat by Pulse 99 98 Oximetry Medical Decision Making - Medical Decision Making 25-year-old female presents to the emergency department requesting monoclonal antibody infusion after close contact exposures. Upon exam, patient is well- appearing and in no acute distress. Patient is afebrile, not tachycardic, nor tachypneic. SpO2 is 95-100% on room air. Does complain of headache, congestion, and nausea. Covid test was negative, however, patient does qualify for monoclonal antibody infusion based on her unvaccinated status and her close contact exposures. Risks and benefits were discussed. Patient is agreeable. Infusion tolerated without any adverse reaction. Also given a liter of IV fluids and Zofran for nausea. Patient will be discharged home to follow up with her primary care provider for recheck as needed. Prescribed Zofran as needed for nausea. Return parameters were discussed in detail. Patient verbalizes understanding and agrees with this plan. This patient's care was discussed my attending Dr. Davis - Lab Data Lab Results 01/10/21 Range/Units 19:32 Coronavirus (PCR) Not Detected (Not Detectd) Disposition Clinical Impression: COVID-19, Nausea Disposition: HOME SELF-CARE Condition: Stable Instructions (If sedation given, give patient instructions): Coronavirus Disease 2019 (COVID-19), Acute Nausea and Vomiting (ED) Additional Instructions: Rest. Increase fluids. May take Zofran for nausea if needed. Follow up with your primary care provider for a recheck. Continue taking the oral steroid as prescribed by your PCP. Return to the emergency department with any new, worsening, or concerning symptoms. Prescriptions: Ondansetron Odt [Zofran Odt] 4 mg PO Q8HR PRN #10 tab PRN Reason: Nausea Is patient prescribed a controlled substance at d/c from ED?: No Referrals: Tex Mendoza MD [Primary Care Provider] - 1-2 days Time of Disposition: 01:25
[2021-01-11 02:12] VITALS: RESP 20
[2021-01-11 02:30] VITALS: BP 119/81; PULSE 87; TEMP 97.7
== END 2021-01-11 01:43 | disposition home or self-care (01) ==
LOC: EC 17:34
DX: U07.1 COVID-19 (principal); J45.909 Unspecified asthma, uncomplicated; Z88.8 Allergy status to other drugs, medicaments and biological substances; Z88.1 Allergy status to other antibiotic agents; Z91.040 Latex allergy status
CPT/HCPCS: 87635; 99284; 96361; 96375; 96365; J2405; J1885; Q0243

== ENCOUNTER → 2021-02-15 | Outpatient (CLI) | payer OTHER ==
--- NOTE | 2021-02-15 16:15 | US ---
EXAMINATION TYPE: US pelvic complete DATE OF EXAM: 02/15/2021 COMPARISON: 08/30/2016 CLINICAL HISTORY: 25-year-old female E28.2 Polycystic ovarian syndrome. Abnormal menses, PCOS, pt sta chalo she is scheduled for D&C TECHNIQUE: Transabdominal (TA). Transabdominal sonographic images of the pelvis were acquired. Date of LMP: 01/01/21 FINDINGS: EXAM MEASUREMENTS: Uterus: 9.4 x 4.6 x 5.3 cm Endometrial Stripe: 1.3 cm Right Ovary: 3.6 x 3.2 x 3.1 cm for volume of 18.7 mL. Left Ovary: 3.0 x 2.8 x 2.6 cm for a volume of 11.4 mL. 1. Uterus: Anteverted. The myometrium is heterogeneous. 2. Endometrium: Heterogeneous and mildly thickened. 3. Right Ovary: Cyst= 2.3 x 2.3 x 2.1 cm 4. Left Ovary: Numerous small follicles. 5. Bilateral Adnexa: wnl 6. Posterior cul-de-sac: wnl IMPRESSION: 1. Mildly thickened and heterogeneous endometrial stripe measuring 1.3 cm. Findings should correspond to the secretory phase of the menstrual cycle. Follow-up in 6-8 weeks to ensure involution. 2. A 2.3 cm dominant follicle or functional cyst of the right ovary. 3. Ovarian measurements as above.
== END | disposition home or self-care (01) ==
LOC: RADUSWWP 14:04
PROVIDERS: ATTEND Family Medicine
DX: N83.201 Unspecified ovarian cyst, right side (principal)
CPT/HCPCS: 76856

== ENCOUNTER 2021-09-04 17:00 | Emergency (ER) | payer OTHER ==
[2021-09-04 17:36] VITALS: RESP 18; TEMP 98.7
--- NOTE | 2021-09-04 18:26 | ED ---
Chest Pain HPI - General Chief Complaint: Chest Pain Stated Complaint: chest pain Time Seen by Provider: 09/04/21 18:04 Source: patient, RN notes reviewed Mode of arrival: ambulatory Limitations: no limitations - History of Present Illness Initial Comments: This is a pleasant 26-year-old female who presents Quach problem with intermittent left anterior chest pains for the last 3-4 weeks. Patient states that it feels like somebody punched her in her chest. This is essentially unrelated to activity. Although she ascertains that it may be worse with some lifting and movements. Patient has been seen and assessed by regular physician. She states she had an EKG done at her primary care's office. Patient states the pain is currently there. She states it was actually worse on Saturday night. No fever or chills. Apparently her primary care physician is going to set her up for an echocardiogram and cardiac stress test. Note that the patient had an IUD placed about one month prior to onset of symptomology. No headache, no fever or chills, no changes in vision or hearing, no sore throat or difficulty with speech, no neck pain, SOME shortness of breath when chest pain is at its worst, no abdominal pain, no nausea or vomiting, no changes in urination or bowel movements, no numbness or tingling, no extremity pain, no skin rashes or lesions. Past medical, surgical, social, and family history reviewed. - Related Data Home Medications Medication Instructions Recorded Confirmed clonazePAM [KlonoPIN] 0.5 mg PO TID PRN 07/15/17 09/04/21 Omeprazole [PriLOSEC] 40 mg PO DAILY 05/05/20 09/04/21 Albuterol Sulfate [Proair Hfa] 2 puff INHALATION RT-Q4H PRN 01/10/21 09/04/21 metFORMIN HCL [Glucophage] 250 mg PO DAILY 01/10/21 09/04/21 Cephalexin [Keflex] 500 mg PO Q8HR 09/04/21 09/04/21 Cetirizine HCl 10 mg PO DAILY 09/04/21 09/04/21 Cyclobenzaprine [Flexeril] 10 mg PO BID 09/04/21 09/04/21 Fluticasone Nasal [place] [Flonase 2 spray EA NOSTRIL DAILY PRN 09/04/21 09/04/21 Nasal [place]] Hydrocortisone Cream 1 applic TOPICAL QID PRN 09/04/21 09/04/21 [Hydrocortisone 2.5% Cream] Megestrol [Megace] 40 mg PO DAILY 09/04/21 09/04/21 Ondansetron [Zofran] 4 mg PO Q6H PRN 09/04/21 09/04/21 Progesterone, Micronized 400 mg PO DAILY 09/04/21 09/04/21 [Progesterone] Previous Rx's Medication Instructions Recorded Naproxen [Naprosyn] 375 mg PO Q12HR PRN #20 tablet 09/04/21 Allergies Allergy/AdvReac Type Severity Reaction Status Date / Time doxycycline Allergy Dyspnea Verified 09/04/21 20:19 azithromycin AdvReac Unknown Verified 09/04/21 20:19 Childhood divalproex sodium AdvReac Unknown Verified 09/04/21 20:19 [From Depakote] Latex, Natural Rubber AdvReac Itching Verified 09/04/21 20:19 sumatriptan [From Imitrex] AdvReac Diarrhea Verified 09/04/21 20:19 sumatriptan succinate AdvReac Diarrhea Verified 09/04/21 20:19 [From Imitrex] topiramate [From Topamax] AdvReac Unknown Verified 09/04/21 20:19 Review of Systems ROS Statement: Those systems with pertinent positive or pertinent negative responses have been documented in the HPI. ROS Other: All systems not noted in ROS Statement are negative. EKG Findings - EKG Comments: EKG Findings:: EKG done at 1710 and reviewed with her regular ED physician reveals sinus rhythm with occasional PVCs, ventricular rate of 92, normal intervals, normal axis, no acute ST or T-wave changes. Past Medical History Past Medical History: Asthma, Sleep Apnea/CPAP/BIPAP Additional Past Medical History / Comment(s): PCOS. HEART PALPITATIONS History of Any Multi-Drug Resistant Organisms: None Reported Past Surgical History: Adenoidectomy, Ear Surgery, Tonsillectomy Additional Past Surgical History / Comment(s): Patient had tympanostomy tubes placed as a child. Past Anesthesia/Blood Transfusion Reactions: Postoperative Nausea & Vomiting (PONV) Past Psychological History: Anxiety, Depression Smoking Status: Never smoker Past Alcohol Use History: None Reported Past Drug Use History: None Reported General Exam - General Exam Comments Initial Comments: Nontoxic appearing female in no acute distress. Cranial nerves II through XII intact Limitations: no limitations General appearance: alert, in no apparent distress Head exam: Present: atraumatic, normocephalic, normal inspection Eye exam: Present: normal appearance, PERRL, EOMI. Absent: scleral icterus, conjunctival injection, periorbital swelling ENT exam: Present: normal exam, normal oropharynx, mucous membranes moist, normal external ear exam. Absent: mucous membranes dry Neck exam: Present: normal inspection, full ROM. Absent: tenderness, meningismus, lymphadenopathy Respiratory exam: Present: normal lung sounds bilaterally, chest wall tenderness (Tender to the left anterior chest wall to palpation, adjacent to the left sternal border at the third costosternal junction). Absent: respiratory distress, wheezes, rales, rhonchi, stridor Cardiovascular Exam: Present: regular rate, normal rhythm, normal heart sounds. Absent: systolic murmur, diastolic murmur, rubs, gallop, clicks GI/Abdominal exam: Present: soft, normal bowel sounds. Absent: distended, tenderness, guarding, rebound, rigid Extremities exam: Present: normal inspection, full ROM, normal capillary refill. Absent: tenderness, pedal edema, joint swelling, calf tenderness Back exam: Present: normal inspection Neurological exam: Present: alert, oriented X3, CN II-XII intact Psychiatric exam: Present: normal affect, normal mood Skin exam: Present: warm, dry, intact, normal color. Absent: rash Course Vital Signs 09/04/21 09/04/21 17:31 19:35 Temperature 98.7 F Pulse Rate 95 84 Pulse Rate [ 84 Director Medical Affairs ] Respiratory 18 Rate Blood Pressure 163/64 141/94 O2 Sat by Pulse 100 Oximetry - Reevaluation(s) Reevaluation #1: 09/04/21 20:52 Medical record is reviewed Symptoms are improved here in the emergency department Patient is informed of results and questions answered Patient in no distress Chest Pain MDM - [facility] Patient presents with recurrent anterior chest wall pain on and off for the past 4 weeks. Patient's workup here essentially negative. Chest x-ray normal. Workup normal. D-dimer negative. Patient did have reproducible chest wall pain. Certainly the patient admits to anxiety. This could be playing a part as well. Patient's EKG did show PVCs. We'll have the patient continue with follow-up with cardiology as planned by her regular physician. She is to call her regular doctor tomorrow for further guidance. This answered. All findings discussed. We'll try Naprosyn twice a day for discomfort. The case was discussed in detail with ED attending physician. Presentation, findings, treatment plan discussed in detail. Patient was told to return to the ER for any signs or symptoms worsen. Told to return immediately if any other problems arise. All questions answered. Treatment plan discussed. Patient in agreement Every effort has been made to ensure accuracy of this dictation. However, due to the limitations of electronic medical records and dictation devices, errors in charting still occur. Addiction Counselor Dr. Moran Disposition Clinical Impression: Anterior chest wall pain, Anxiety, PVC's (premature ventricular contractions) Disposition: HOME SELF-CARE Condition: Good Instructions (If sedation given, give patient instructions): Chest Pain (ED), Chest Wall Pain (ED), Anxiety (ED), Premature Ventricular Contractions (ED) Additional Instructions: Follow-up with your regular physician as directed. Return to the ER immediately if any symptoms worsen, new symptoms arise, or any other problems develop. Is patient prescribed a controlled substance at d/c from ED?: No Referrals: Tex Mendoza MD [Primary Care Provider] - 1-2 days Time of Disposition: 20:52
--- NOTE | 2021-09-04 18:48 | XR ---
EXAMINATION TYPE: XR chest 1V portable DATE OF EXAM: 09/04/2021 6:44 PM COMPARISON: Chest radiographs from 01/09/2021 TECHNIQUE: XR chest 1V portable Frontal view of the chest. CLINICAL INDICATION:Female, 26 years old with history of chest pain; FINDINGS: Lungs/Pleura: There is no evidence of pleural effusion, focal consolidation, or pneumothorax. Pulmonary vascularity: Unremarkable. Heart/mediastinum: Cardiomediastinal silhouette is unremarkable. Musculoskeletal: No acute osseous pathology. IMPRESSION: No acute cardiopulmonary disease/process.
[2021-09-04 19:50] LABS: Basophils % (A) 1 %; Eosinophils # (A) 0.3 k/uL (0-0.7); Eosinophils % (A) 4 %; HCT 41.6 % (34.0-46.0); HGB 14.1 gm/dL (11.4-16.0); Lymphocytes % (A) 29 %; MCH 29.5 pg (25.0-35.0); MCV 86.9 fL (80.0-100.0); Mean Platelet Volume 8.2; Monocytes # (A) 0.3 k/uL (0-1.0); Monocytes % (A) 4 %; Neutrophils # (A) 4.2 k/uL (1.3-7.7); Neutrophils % (A) 60 %; Platelet Count 276 k/uL (150-450); RBC 4.78 m/uL (3.80-5.40); RDW 13.2 % (11.5-15.5); WBC 6.9 k/uL (3.8-10.6)
[2021-09-04 19:59] LABS: ALT 34 U/L (4-34); AST 36 U/L (14-36); African American GFR (CKD) >90 (>60 ml/min/1.73 sqM); Albumin 4.7 g/dL (3.5-5.0); Alkaline Phosphatase 63 U/L (38-126); Anion Gap 7 mmol/L; Blood Urea Nitrogen 12 mg/dL (7-17); Calcium 9.8 mg/dL (8.4-10.2); Carbon Dioxide 29 mmol/L (22-30); Chloride 103 mmol/L (98-107); Glucose 87 mg/dL (74-99); Magnesium 1.7 mg/dL (1.6-2.3); Non-African American GFR(CKD) 80 (>60 ml/min/1.73 sqM); Potassium 4.2 mmol/L (3.5-5.1); Sodium 139 mmol/L (137-145); Total Bilirubin 0.4 mg/dL (0.2-1.3); Total Protein 7.7 g/dL (6.3-8.2)
[2021-09-04 21:16] VITALS: BP 114/72; PULSE 70
== END 2021-09-04 21:28 | disposition home or self-care (01) ==
LOC: EC 17:00
DX: I49.3 Ventricular premature depolarization (principal); F41.9 Anxiety disorder, unspecified; J45.909 Unspecified asthma, uncomplicated; Z88.1 Allergy status to other antibiotic agents; Z88.3 Allergy status to other anti-infective agents; Z91.040 Latex allergy status; Z88.8 Allergy status to other drugs, medicaments and biological substances
CPT/HCPCS: 36415; 71045; 80053; 83735; 84484; 85025; 85379; 93005; 99285

== ENCOUNTER 2022-06-24 15:00 | Emergency (ER) | payer OTHER ==
[2022-06-24] MEDS ORDERED: SODIUM CHLORIDE 0.9% 1,000 ML IV STA (15:34)
[2022-06-24] MEDS ORDERED: METOCLOPRAMIDE 5 MG/ML 2 ML VIAL IVP STA (15:34)
[2022-06-24] MEDS ORDERED: MORPHINE SULFATE 4 MG/ML SYRINGE IVP STA (15:35)
--- NOTE | 2022-06-24 15:57 | ED ---
Abdominal Pain HPI - General Chief Complaint: Abdominal Pain Stated Complaint: ABD PAIN Time Seen by Provider: 06/24/22 15:17 Source: patient Mode of arrival: ambulatory Limitations: no limitations - History of Present Illness Initial Comments: Patient is a 27-year-old female presenting with chief complaint of abdominal pain. Pain is located primarily in the right upper quadrant. Has been ongoing for the last week. She admits to nausea and vomiting. She was seen recently by her PCP and diagnosed with UTI and she is currently on cefdinir. No history of abdominal surgeries. No dysuria or hematuria. No fevers or chills. She admits to diarrhea. No hematochezia or melena. - Related Data Home Medications Medication Instructions Recorded Confirmed clonazePAM [KlonoPIN] 0.5 mg PO TID PRN 07/15/17 09/04/21 Omeprazole [PriLOSEC] 40 mg PO DAILY 05/05/20 09/04/21 Albuterol Sulfate [Proair Hfa] 2 puff INHALATION RT-Q4H PRN 01/10/21 09/04/21 metFORMIN HCL [Glucophage] 250 mg PO DAILY 01/10/21 09/04/21 Cephalexin [Keflex] 500 mg PO Q8HR 09/04/21 09/04/21 Cetirizine HCl 10 mg PO DAILY 09/04/21 09/04/21 Cyclobenzaprine [Flexeril] 10 mg PO BID 09/04/21 09/04/21 Fluticasone Nasal [place] [Flonase 2 spray EA NOSTRIL DAILY PRN 09/04/21 09/04/21 Nasal [place]] Hydrocortisone Cream 1 applic TOPICAL QID PRN 09/04/21 09/04/21 [Hydrocortisone 2.5% Cream] Megestrol [Megace] 40 mg PO DAILY 09/04/21 09/04/21 Ondansetron [Zofran] 4 mg PO Q6H PRN 09/04/21 09/04/21 Progesterone, Micronized 400 mg PO DAILY 09/04/21 09/04/21 [Progesterone] Previous Rx's Medication Instructions Recorded Naproxen [Naprosyn] 375 mg PO Q12HR PRN #20 tablet 09/04/21 Fluconazole [Diflucan] 150 mg PO ONCE #1 tab 06/24/22 Metoclopramide [Reglan] 10 mg PO BID PRN #20 tab 06/24/22 Allergies Allergy/AdvReac Type Severity Reaction Status Date / Time doxycycline Allergy Dyspnea Verified 06/24/22 15:13 divalproex sodium AdvReac Unknown Verified 06/24/22 15:13 [From Depakote] Latex, Natural Rubber AdvReac Itching Verified 06/24/22 15:13 sumatriptan [From Imitrex] AdvReac Diarrhea Verified 06/24/22 15:13 sumatriptan succinate AdvReac Diarrhea Verified 06/24/22 15:13 [From Imitrex] topiramate [From Topamax] AdvReac Unknown Verified 06/24/22 15:13 Review of Systems ROS Statement: Those systems with pertinent positive or pertinent negative responses have been documented in the HPI. ROS Other: All systems not noted in ROS Statement are negative. Past Medical History Past Medical History: Asthma, Sleep Apnea/CPAP/BIPAP Additional Past Medical History / Comment(s): PCOS. HEART PALPITATIONS History of Any Multi-Drug Resistant Organisms: None Reported Past Surgical History: Adenoidectomy, Ear Surgery, Tonsillectomy Additional Past Surgical History / Comment(s): Patient had tympanostomy tubes placed as a child. Past Anesthesia/Blood Transfusion Reactions: Postoperative Nausea & Vomiting (PONV) Past Psychological History: Anxiety, Depression Smoking Status: Never smoker Past Alcohol Use History: None Reported Past Drug Use History: None Reported General Exam Limitations: no limitations General appearance: alert, in no apparent distress Head exam: Present: atraumatic, normocephalic, normal inspection Eye exam: Present: normal appearance, EOMI. Absent: scleral icterus, periorbital swelling Neck exam: Present: normal inspection, full ROM Respiratory exam: Present: normal lung sounds bilaterally. Absent: respiratory distress, wheezes, rales, rhonchi, stridor Cardiovascular Exam: Present: regular rate, normal rhythm, normal heart sounds. Absent: systolic murmur, diastolic murmur, rubs, gallop, clicks GI/Abdominal exam: Present: soft, tenderness, guarding. Absent: distended, rebound, rigid Expanded GI/Abdominal exam: Present: Solorzano's sign Neurological exam: Present: alert, oriented X3, CN II-XII intact Psychiatric exam: Present: normal affect, normal mood Skin exam: Present: warm, dry, intact, normal color. Absent: rash Course Vital Signs 06/24/22 06/24/22 06/24/22 15:09 16:17 18:08 Temperature 97.9 F 98.1 F 98.2 F Pulse Rate 76 83 66 Respiratory 16 17 18 Rate Blood Pressure 157/98 149/102 120/69 O2 Sat by Pulse 98 98 Oximetry Medical Decision Making - Medical Decision Making Was pt. sent in by a medical professional or institution (, PA, EMISSIONS TESTING TECHNICIAN, urgent care, hospital, or snf...) When possible be specific @ -No Did you speak to anyone other than the patient for history (EMS, parent, family, police, friend...)? What history was obtained from this source @ -No Did you review nursing and triage notes (agree or disagree)? Why? @ -I reviewed and agree with nursing and triage notes Were old charts reviewed (outside hosp., previous admission, EMS record, old EKG, old radiological studies, urgent care reports/EKG's, snf records)? Report findings @ -No old charts were reviewed Differential Diagnosis (chest pain, altered mental status, abdominal pain women, abdominal pain men, vaginal bleeding, weakness, fever, dyspnea, syncope, headache, dizziness, GI bleed, back pain, seizure, CVA, palpatations, mental health, musculoskeletal)? @ -MDM Differential Abdominal Pain Women: Appendicitis, Cholecystitis, diverticulosis, ischemic bowel, pancreatitis, hepatitis, UTI, gastroenteritis, AAA, incarcerated hernia, bowel obstruction, constipation, inflammatory bowel, hepatitis, peptic ulcer disease, splenic infarction, perforated viscus, vulvitis, ovarian torsion, PID, kidney stone, placenta abruption... This is not meant to be an all-inclusive list EKG interpreted by me (3pts min.). @ -As above X-rays interpreted by me (1pt min.). @ -None done CT interpreted by me (1pt min.). @ -CT shows right ovarian cyst measuring 2.7 cm. There is nonvisualization of the appendix however right lower quadrant inflammatory changes not seen U/S interpreted by me (1pt. min.). @ -Ultrasound shows no acute process. There is hepatomegaly with mild to mo derate fatty infiltration What testing was considered but not performed or refused? (CT, X-rays, U/S, labs)? Why? @ -None What meds were considered but not given or refused? Why? @ -None Did you discuss the management of the patient with other professionals (professionals i.e. , PA, EMISSIONS TESTING TECHNICIAN, lab, RT, psych nurse, criminal justice social worker, community engagement leader, teacher, corporate compliance officer, telephonic case manager)? Give summary @ -No Was smoking cessation discussed for >3mins.? @ -No Was critical care preformed (if so, how long)? @ -No Were there social determinants of health that impacted care today? How? (Homelessness, low income, unemployed, alcoholism, drug addiction, transportation, low edu. Level, literacy, decrease access to med. care, retirement, rehab)? @ -No Was there de-escalation of care discussed even if they declined (Discuss DNR or withdrawal of care, Hospice)? DNR status @ -No What co-morbidities impacted this encounter? (DM, HTN, Smoking, COPD, CAD, Cancer, CVA, ARF, Chemo, Hep., AIDS, mental health diagnosis, sleep apnea, morbid obesity)? @ -None Was patient admitted / discharged? Hospital course, mention meds given and route, prescriptions, significant lab abnormalities, going to OR and other pertinent info. @ -Patient is a 27-year-old female presenting with chief complaint of right upper quadrant pain. Patient is currently being treated for a UTI with cefdinir. On physical examination there is right upper quadrant tenderness. Lab work shows no leukocytosis or anemia. CMP is essentially unremarkable. Urine shows signs of contamination, patient is a 28 on antibiotic for UTI, urine will be sent for culture. HCG is negative. Ultrasound shows no acute process. CT is negative for any acute process. On reassessment patient reports improvement in her symptoms. She is instructed to follow-up with her PCP and continue taking medications as prescribed. Follow-up with PCP. Report back to ER with any new or worsening symptoms. Discussed return parameters and answered all questions. Patient conveyed verbal understanding and agreed to the plan. I discussed this case in detail with my attending Dr. Lee Undiagnosed new problem with uncertain prognosis? @ -No Drug Therapy requiring intensive monitoring for toxicity (Heparin, Nitro, Insulin, Cardizem)? @ -No Were any procedures done? @ -No Diagnosis/symptom? @ -Abdominal pain Acute, or Chronic, or Acute on Chronic? @ -Acute Uncomplicated (without systemic symptoms) or Complicated (systemic symptoms)? @ -Uncomplicated Side effects of treatment? @ -No Exacerbation, Progression, or Severe Exacerbation? @ -No Poses a threat to life or bodily function? How? (Chest pain, [place], [place], pneumonia, PE, COPD, DKA, ARF, appy, cholecystitis, CVA, Diverticulitis, Homicidal, Suicidal, threat to staff... and all critical care pts) @ -No - Lab Data Result diagrams: 06/24/22 15:52 06/24/22 15:52 Lab Results 06/24/22 06/24/22 06/24/22 Range/Units 15:52 15:52 15:52 WBC 6.5 (3.8-10.6) k/uL RBC 5.16 (3.80-5.40) m/uL Hgb 13.8 (11.4-16.0) gm/dL Hct 41.4 (34.0-46.0) % MCV 80.3 (80.0-100.0) fL MCH 26.8 (25.0-35.0) pg MCHC 33.3 (31.0-37.0) g/dL RDW 14.5 (11.5-15.5) % Plt Count 219 (150-450) k/uL MPV 8.7 Neutrophils % 59 % Lymphocytes % 30 % Monocytes % 4 % Eosinophils % 5 % Basophils % 0 % Neutrophils # 3.8 (1.3-7.7) k/uL Lymphocytes # 2.0 (1.0-4.8) k/uL Monocytes # 0.2 (0-1.0) k/uL Eosinophils # 0.3 (0-0.7) k/uL Basophils # 0.0 (0-0.2) k/uL Sodium 137 (137-145) mmol/L Potassium 4.8 (3.5-5.1) mmol/L Chloride 105 (98-107) mmol/L Carbon Dioxide 22 (22-30) mmol/L Anion Gap 10 mmol/L BUN 12 (7-17) mg/dL Creatinine 0.66 (0.52-1.04) mg/dL Est GFR (CKD-EPI)AfAm >90 (>60 ml/min/1.73 sqM) Est GFR (CKD-EPI)NonAf >90 (>60 ml/min/1.73 sqM) Glucose 84 (74-99) mg/dL Plasma Lactic Acid Balaji 0.9 (0.7-2.0) mmol/L Calcium 9.6 (8.4-10.2) mg/dL Total Bilirubin 1.0 (0.2-1.3) mg/dL AST 41 H (14-36) U/L ALT 28 (4-34) U/L Alkaline Phosphatase 60 (38-126) U/L Total Protein 7.7 (6.3-8.2) g/dL Albumin 4.7 (3.5-5.0) g/dL Amylase 46 (30-110) U/L Lipase 98 (23-300) U/L Urine Color Urine Appearance (Clear) Urine pH (5.0-8.0) Ur Specific [place] (1.001-1.035) Urine Protein (Negative) Urine Glucose (UA) (Negative) Urine Ketones (Negative) Urine Blood (Negative) Urine Nitrite (Negative) Urine Bilirubin (Negative) Urine Urobilinogen (<2.0) mg/dL Ur Leukocyte Esterase (Negative) Urine RBC (0-5) /hpf Urine WBC (0-5) /hpf Ur Squamous Epith Cells (0-4) /hpf Urine Bacteria (None) /hpf Urine Mucus (None) /hpf Urine HCG, Qual (Not Detectd) 06/24/22 06/24/22 Range/Units 15:52 15:52 WBC (3.8-10.6) k/uL RBC (3.80-5.40) m/uL Hgb (11.4-16.0) gm/dL Hct (34.0-46.0) % MCV (80.0-100.0) fL MCH (25.0-35.0) pg MCHC (31.0-37.0) g/dL RDW (11.5-15.5) % Plt Count (150-450) k/uL MPV Neutrophils % % Lymphocytes % % Monocytes % % Eosinophils % % Basophils % % Neutrophils # (1.3-7.7) k/uL Lymphocytes # (1.0-4.8) k/uL Monocytes # (0-1.0) k/uL Eosinophils # (0-0.7) k/uL Basophils # (0-0.2) k/uL Sodium (137-145) mmol/L Potassium (3.5-5.1) mmol/L Chloride (98-107) mmol/L Carbon Dioxide (22-30) mmol/L Anion Gap mmol/L BUN (7-17) mg/dL Creatinine (0.52-1.04) mg/dL Est GFR (CKD-EPI)AfAm (>60 ml/min/1.73 sqM) Est GFR (CKD-EPI)NonAf (>60 ml/min/1.73 sqM) Glucose (74-99) mg/dL Plasma Lactic Acid Balaji (0.7-2.0) mmol/L Calcium (8.4-10.2) mg/dL Total Bilirubin (0.2-1.3) mg/dL AST (14-36) U/L ALT (4-34) U/L Alkaline Phosphatase (38-126) U/L Total Protein (6.3-8.2) g/dL Albumin (3.5-5.0) g/dL Amylase (30-110) U/L Lipase (23-300) U/L Urine Color Yellow Urine Appearance Cloudy H (Clear) Urine pH 5.5 (5.0-8.0) Ur Specific [place] 1.023 (1.001-1.035) Urine Protein Trace H (Negative) Urine Glucose (UA) Negative (Negative) Urine Ketones Negative (Negative) Urine Blood Negative (Negative) Urine Nitrite Negative (Negative) Urine Bilirubin Negative (Negative) Urine Urobilinogen <2.0 (<2.0) mg/dL Ur Leukocyte Esterase Large H (Negative) Urine RBC 9 H (0-5) /hpf Urine WBC 3 (0-5) /hpf Ur Squamous Epith Cells 8 H (0-4) /hpf Urine Bacteria Rare H (None) /hpf Urine Mucus Occasional H (None) /hpf Urine HCG, Qual Not Detected (Not Detectd) Disposition Clinical Impression: Abdominal pain Disposition: HOME SELF-CARE Condition: Good Instructions (If sedation given, give patient instructions): Abdominal Pain (ED) Additional Instructions: Follow-up with PCP. Report back to ER with any new or worsening symptoms. Take medication as prescribed. Prescriptions: Fluconazole [Diflucan] 150 mg PO ONCE #1 tab Metoclopramide [Reglan] 10 mg PO BID PRN #20 tab PRN Reason: Nausea Is patient prescribed a controlled substance at d/c from ED?: No Referrals: Tex Mendoza MD [Primary Care Provider] - 1-2 days Time of Disposition: 18:24
[2022-06-24 16:20] LABS: Basophils % (A) 0 %; Eosinophils # (A) 0.3 k/uL (0-0.7); Eosinophils % (A) 5 %; HCT 41.4 % (34.0-46.0); HGB 13.8 gm/dL (11.4-16.0); Lymphocytes % (A) 30 %; MCH 26.8 pg (25.0-35.0); MCHC 33.3 g/dL (31.0-37.0); MCV 80.3 fL (80.0-100.0); Mean Platelet Volume 8.7; Monocytes # (A) 0.2 k/uL (0-1.0); Monocytes % (A) 4 %; Neutrophils # (A) 3.8 k/uL (1.3-7.7); Neutrophils % (A) 59 %; Platelet Count 219 k/uL (150-450); RBC 5.16 m/uL (3.80-5.40); RDW 14.5 % (11.5-15.5); WBC 6.5 k/uL (3.8-10.6)
[2022-06-24 16:30] LABS: Appearance,Urine Cloudy (Clear); Bacteria,Urine Rare /hpf; Bilirubin,Urine Negative (Negative); Blood,Urine Negative (Negative); Color,Urine Yellow; Glucose,Urine (UA) Negative (Negative); Ketones,Urine Negative (Negative); Leukocyte Esterase,Urine Large (Negative); Mucus,Urine Occasional /hpf; Nitrite,Urine Negative (Negative); PH, Urine 5.5 (5.0-8.0); Protein,Urine Trace (Negative); RBC,Urine 9 /hpf (0-5); Specific Gravity,Urine 1.023 (1.001-1.035); Squamous Epithelial Cell,Urine 8 /hpf (0-4); Urobilinogen,Urine <2.0 mg/dL (<2.0); WBC,Urine 3 /hpf (0-5)
--- NOTE | 2022-06-24 16:42 | US ---
EXAMINATION TYPE: US abdomen limited DATE OF EXAM: 06/24/2022 COMPARISON: US CLINICAL INDICATION: Female, 27 years old with history of RUQ pain; Pt states RUQ pain TECHNIQUE: Multiple sonographic images of the right upper quadrant are obtained. FINDINGS: EXAM MEASUREMENTS: Liver Length: 21.1 cm Gallbladder Wall: 0.2 cm CBD: 0.5 cm Right Kidney: 11.2 x 4.4 x 4.2 cm COAL GRADER NOTES: Pancreas: wnl, tail obscured by overlying bowel gas Liver: Enlarged, difficult to penetrate, heterogeneous Gallbladder: wnl Evidence for sonographic Solorzano's sign: No CBD: wnl Right Kidney: wnl IMPRESSION: 1. Hepatomegaly. Mild to moderate fatty infiltration may be present.
[2022-06-24 16:52] LABS: ALT 28 U/L (4-34); AST 41 U/L (14-36); African American GFR (CKD) >90 (>60 ml/min/1.73 sqM); Albumin 4.7 g/dL (3.5-5.0); Alkaline Phosphatase 60 U/L (38-126); Amylase 46 U/L (30-110); Anion Gap 10 mmol/L; Blood Urea Nitrogen 12 mg/dL (7-17); Calcium 9.6 mg/dL (8.4-10.2); Carbon Dioxide 22 mmol/L (22-30); Chloride 105 mmol/L (98-107); Glucose 84 mg/dL (74-99); Lipase 98 U/L (23-300); Non-African American GFR(CKD) >90 (>60 ml/min/1.73 sqM); Sodium 137 mmol/L (137-145); Total Protein 7.7 g/dL (6.3-8.2)
[2022-06-24 16:53] LABS: Potassium 4.8 mmol/L (3.5-5.1)
--- NOTE | 2022-06-24 18:01 | CT ---
EXAMINATION TYPE: CT abdomen pelvis w con DATE OF EXAM: 06/24/2022 COMPARISON: 04/17/2018 HISTORY: RLQ pain CT DLP: 2233.5 mGycm CONTRAST: CT scan of the abdomen and pelvis is performed without Oral Contrast and with IV Contrast, patient in jected with 100 mL of Isovue 300. FINDINGS: LUNG BASES-: No visible nodule. No infiltrate. LIVER/GB: No calcified gallstones. No space occupying hepatic lesion. Biliary tree is of normal ca liber. There is evidence of hepatic steatosis. PANCREAS: No inflammation. No distinct mass. SPLEEN: No splenic enlargement. No lesion seen. ADRENALS: No nodule. No thickening. KIDNEYS/BLADDER: No hydronephrosis. No nephrolithiasis. No distinct renal mass. Urinary bladder g rossly unremarkable. BOWEL: There is nonvisualization of the appendix however right lower quadrant inflammatory change is not seen. Normal bowel caliber. No inflammation. GENITAL ORGANS: Right ovarian cyst measuring 2.7 cm. LYMPH NODES: No greater than 1cm abdominal or pelvic lymph nodes are appreciated. AORTA: No significant abnormality. OSSEOUS STRUCTURES: No significant abnormality is seen. OTHER: No significant additional abnormality is seen. IMPRESSION: 1. There is nonvisualization of the appendix however right lower quadrant inflammatory change is not seen. 2. Right ovarian cyst measuring 2.7 cm.
[2022-06-24 18:08] VITALS: BP 120/69; PULSE 66; RESP 18; TEMP 98.2
== END 2022-06-24 18:41 | disposition home or self-care (01) ==
LOC: EC 15:00
DX: N83.201 Unspecified ovarian cyst, right side (principal); K76.0 Fatty (change of) liver, not elsewhere classified; J45.909 Unspecified asthma, uncomplicated; Z79.51 Long term (current) use of inhaled steroids; Z79.899 Other long term (current) drug therapy; Z88.1 Allergy status to other antibiotic agents; Z91.040 Latex allergy status; Z88.8 Allergy status to other drugs, medicaments and biological substances
CPT/HCPCS: 36415; 80053; 82150; 83605; 83690; 85025; 81001; 81025; 76705; 74177; 99284; 96374; 96375; 96361; J2270; J2765; Q9967; 87086

== ENCOUNTER → 2023-07-31 | Outpatient (CLI) | payer OTHER ==
[2023-07-31 15:07] LABS: Hepatitis B Surface Antigen Nonreactive (Nonreactive); Hepatitis C IgG Antibody Nonreactive (Nonreactive)
[2023-07-31 15:16] LABS: Basophils # (A) 0.04 X 10*3/uL (0.00-0.10); Basophils % (A) 0.6 %; Eosinophils # (A) 0.63 X 10*3/uL (0.04-0.35); Eosinophils % (A) 8.8 %; HCT 43.1 % (37.2-46.3); Lymphocytes # (A) 1.93 X 10*3/uL (0.90-5.00); Lymphocytes % (A) 26.8 %; MCH 28.7 pg (27.0-32.0); MCHC 32.5 g/dL (32.0-37.0); MCV 88.3 FL (80.0-97.0); Monocytes # (A) 0.34 X 10*3/uL (0.20-1.00); Monocytes % (A) 4.7 %; NRBC Per 100 WBC 0 X 10*3/uL (0.00-0.01); Neutrophils # (A) 4.23 X 10*3/uL (1.80-7.70); Neutrophils % (A) 58.8 %; Platelet Count 249 X 10*3/uL (140-440); RBC 4.88 X 10*6/uL (4.10-5.20); RDW 12.8 % (11.5-14.5); WBC 7.19 X 10*3/uL (4.50-10.00)
[2023-07-31 15:27] LABS: Ceruloplasmin 31.4 mg/dL (20.0-60.0)
[2023-07-31 15:28] LABS: Protein, Total 7.2 g/dL (6.2-8.2)
[2023-07-31 15:57] LABS: % Iron Saturation 13.36 (12.00-45.00); ALT 48 U/L (8-44); AST 34 U/L (13-35); Albumin 4.8 g/dL (3.8-4.9); Albumin/Globulin Ratio 1.92 Ratio (1.60-3.17); Alkaline Phosphatase 74 U/L (41-126); Amylase 34 U/L (23-121); Blood Urea Nitrogen 11.6 mg/dL (9.0-27.0); Calcium 9.7 mg/dL (8.7-10.3); Carbon Dioxide 24.8 mmol/L (21.6-31.8); Chloride 101 mmol/L (96-109); Estradiol 58.5 pg/mL; Ferritin 58.2 ng/mL (10.0-291.0); Globulin 2.5 g/dL (1.6-3.3); Glucose 107 mg/dL (70-110); Iron 64 UG/DL (50-170); LDL Cholesterol,Calculated 137.7 mg/dL (0.0-131.0); Lipase 34 U/L (14-63); Potassium 4.4 mmol/L (3.5-5.5); Sodium 139 mmol/L (135-145); Total Bilirubin 0.4 mg/dL (0.3-1.2); Total Iron Binding Capacity 479 UG/DL (228-460); Total Protein 7.3 g/dL (6.2-8.2); VLDL Calculation 16.12 mg/dL (5.00-40.00)
[2023-07-31 16:07] LABS: Follicle Stimulating Hormone 5.6 mIU/mL; Luteinizing Hormone 10.1 mIU/mL
[2023-08-01 10:48] LABS: Smooth Muscle Antibody 5 UNITS (<20)
[2023-08-01 21:18] LABS: Albumin 4.29 g/dL (3.80-4.90)
== END | disposition home or self-care (01) ==
LOC: LABWHC1 10:31
PROVIDERS: ATTEND Internal Medicine Gastroenterology
DX: E28.2 Polycystic ovarian syndrome (principal); E55.9 Vitamin D deficiency, unspecified; K76.0 Fatty (change of) liver, not elsewhere classified; R58 Hemorrhage, not elsewhere classified; R74.8 Abnormal levels of other serum enzymes
CPT/HCPCS: 36415; 80053; 80061; 81596; 82103; 82150; 82306; 82390; 82607; 82627; 82670; 82728; 82746; 83001; 83002; 83036; 83498; 83516; 83540; 83550; 83690; 84146; 84165; 84305; 84403; 84443; 85025; 86038; 86803; 87340

== ENCOUNTER 2023-10-25 08:42 | Day surgery (SDC) | payer OTHER ==
[2023-10-22 09:59] VITALS: BMI 43.4
[2023-10-25 10:03] VITALS: TEMP 97.6
[2023-10-25] MEDS: LACTATED RINGERS 1,000 ML IV SCH (10:13)
[2023-10-25] MEDS: IV FLUID CONTINUATION 1,000 ML IV ONE (10:14)
[2023-10-25 10:17] LABS: Glucose,Whole Blood 109 mg/dL (70-110)
[2023-10-25] MEDS ORDERED: ONDANSETRON 4 MG/2 ML VIAL ONE (11:04)
[2023-10-25] MEDS ORDERED: LIDOCAINE 2% (PF) 20 MG/ML 5 ML VIAL ONE (11:04)
[2023-10-25] MEDS ORDERED: PROPOFOL 10 MG/ML 20 ML VIAL IV ONE (11:04)
--- NOTE | 2023-10-25 11:16 | P.PCN ---
Date of Procedure: 10/25/23 Procedure(s) Performed: BRIEF HISTORY: Patient is a 28-year-old, pleasant, white female scheduled for an upper endoscopy as a part of evaluation of chronic epigastric pain for the last 4 months duration. She is on Protonix as well as Carafate with no help.. PROCEDURE PERFORMED: Esophagogastroduodenoscopy with biopsy. PREOPERATIVE DIAGNOSIS: Chronic epigastric pain of 4 months duration. IV sedation per anesthesia. PROCEDURE: After informed consent was obtained, the patient was brought into the endoscopy unit. IV sedation was administered by Anesthesia under continuous monitoring. Initially the Olympus GIF-140 video endoscope was inserted into the mouth. Esophagus intubated without any difficulty. It was gradually advanced into the stomach and duodenum and carefully examined. The bulb and the second part of the duodenum appeared normal. The scope at this time was withdrawn to the stomach, adequately insufflated with air, and upon careful examination, mucosa of the antrum, linear areas of erythema consistent with gastritis and biopsies were done from this area. Mucosa body, cardia and the fundus appeared normal. Multiple small gastric polyps in the proximal body of the stomach which were biopsied. The scope was then withdrawn into the esophagus. Mild hiatal hernia noted. The GE junction was located at 39 cm from the incisors. The esophagus appeared normal. There were no erosions or ulcerations seen biopsies were done from the distal esophagus and the patient tolerated the procedure well. IMPRESSION: 1. Mild antral gastritis. 2. Small gastric polyps in the proximal body of the stomach s/p biopsy 3. Small hiatal hernia but no evidence of esophagitis or Rowland's esophagus. RECOMMENDATIONS: The findings of this examination were discussed with the patient as well as her family. She was advised to follow up with the biopsy results. Continue with Protonix as well as Carafate and follow antireflux measures. Follow-up in the office in 2 weeks.
[2023-10-25 11:38] VITALS: BP 104/57; PULSE 61; RESP 16
== END 2023-10-25 12:04 | disposition home or self-care (01) ==
LOC: ORWHC2ENDO 08:42
PROVIDERS: ATTEND Internal Medicine Gastroenterology
DX: K29.50 Unspecified chronic gastritis without bleeding (principal); K20.90 Esophagitis, unspecified without bleeding; G89.29 Other chronic pain; D72.10 Eosinophilia, unspecified; K31.7 Polyp of stomach and duodenum; K44.9 Diaphragmatic hernia without obstruction or gangrene; J45.909 Unspecified asthma, uncomplicated; G47.33 Obstructive sleep apnea (adult) (pediatric); F41.8 Other specified anxiety disorders; K76.0 Fatty (change of) liver, not elsewhere classified; Z79.51 Long term (current) use of inhaled steroids; Z79.899 Other long term (current) drug therapy; Z90.710 Acquired absence of both cervix and uterus
CPT/HCPCS: 88305; 88312; 43239; J2405; J2704; J2001

== ENCOUNTER → 2023-11-08 | Outpatient (CLI) | payer OTHER ==
[2023-11-08 15:38] LABS: Basophils # (A) 0.02 X 10*3/uL (0.00-0.10); Basophils % (A) 0.3 %; Eosinophils # (A) 0.42 X 10*3/uL (0.04-0.35); Eosinophils % (A) 6.6 %; HCT 40.4 % (37.2-46.3); HGB 13.8 g/dL (12.0-15.0); Lymphocytes # (A) 1.43 X 10*3/uL (0.90-5.00); Lymphocytes % (A) 22.3 %; MCHC 34.2 g/dL (32.0-37.0); MCV 84.9 FL (80.0-97.0); Mean Platelet Volume 11.1 FL (9.5-12.2); Monocytes # (A) 0.31 X 10*3/uL (0.20-1.00); Monocytes % (A) 4.8 %; NRBC Per 100 WBC 0 X 10*3/uL (0.00-0.01); Neutrophils # (A) 4.22 X 10*3/uL (1.80-7.70); Neutrophils % (A) 65.8 %; Platelet Count 235 X 10*3/uL (140-440); RBC 4.76 X 10*6/uL (4.10-5.20); RDW 12.8 % (11.5-14.5); WBC 6.41 X 10*3/uL (4.50-10.00)
[2023-11-08 16:10] LABS: Blood Urea Nitrogen 9.9 mg/dL (9.0-27.0); Glucose 98 mg/dL (70-110)
[2023-11-08 16:11] LABS: ALT 42 U/L (8-44); AST 34 U/L (13-35); Albumin 4.6 g/dL (3.8-4.9); Albumin/Globulin Ratio 1.84 Ratio (1.60-3.17); Alkaline Phosphatase 70 U/L (41-126); Calcium 9.7 mg/dL (8.7-10.3); Carbon Dioxide 23.3 mmol/L (21.6-31.8); Chloride 105 mmol/L (96-109); Globulin 2.5 g/dL (1.6-3.3); Potassium 4.6 mmol/L (3.5-5.5); Sodium 141 mmol/L (135-145); Total Bilirubin 0.5 mg/dL (0.3-1.2); Total Protein 7.1 g/dL (6.2-8.2)
== END | disposition home or self-care (01) ==
LOC: LABWHC1 11:32
PROVIDERS: ATTEND Nurse Practitioner Family
DX: R10.13 Epigastric pain (principal); R74.8 Abnormal levels of other serum enzymes
CPT/HCPCS: 36415; 80053; 83516; 85025

== ENCOUNTER → 2023-11-11 | Outpatient (CLI) | payer OTHER ==
[2023-11-11 14:12] LABS: Glucose 2 Hour 114 mg/dL
[2023-11-11 15:51] LABS: Estradiol 52.1 pg/mL; Testosterone 27.9 ng/dL (9.01-47.94)
[2023-11-11 16:40] LABS: Follicle Stimulating Hormone 5.3 mIU/mL; Luteinizing Hormone 12.5 mIU/mL; Prolactin 9.9 ng/mL (2.800-29.200)
== END | disposition home or self-care (01) ==
LOC: LABWHC1 10:30
PROVIDERS: ATTEND Internal Medicine Endocrinology, Diabetes & Metabolism
DX: E28.2 Polycystic ovarian syndrome (principal)
CPT/HCPCS: 36415; 82627; 82670; 82951; 83001; 83002; 83036; 83498; 84146; 84305; 84403